=== PATIENT | female | born 1975 | race Caucasian/White ===

== ENCOUNTER → 2017-01-06 | Outpatient (CLI) | payer BC ==
--- NOTE | 2017-01-06 12:47 | MAMMOGRAPHY REPORT ---
ULTRASOUND OF BOTH BREASTS: 01/06/2017 CLINICAL HISTORY: The patient reports bilateral diffuse breast pain, left greater than right for appr oximately 6 months. COMPARISON: No prior exams were available for comparison. TECHNIQUE: Real-time ultrasound of both breasts was performed. FINDINGS: Bilateral mammography is recommended as the patient is over 40 years old, however, the pat ient refuses mammography and only would prefer ultrasound. Therefore, ultrasound was performed of bernardino th breasts including all 4 quadrants and subareolar regions. Multiple anechoic masses were seen during the exam consistent with cysts, including a round anechoic benign cyst measuring 3 x 3 mm in the left breast at 9:00, 2 cm from the nipple. A slightly hypoecho ic solid appearing circumscribed mass measuring 4 x 3 x 4 mm is seen within the left 11:00 breast, 2 cm from the nipple, which may represent a fibroadenoma. A nearly anechoic lobulated 3 x 2 x 3 mm mas s is seen within the left breast at 12:00, 4 cm from the nipple, which likely represents a complicate d cyst. An anechoic benign cyst is seen within the left subareolar breast measuring 4 mm. Other ane choic benign cysts are seen within the left 12 and 1:00 breast. An oval parallel hypoechoic solid-ap pearing mass measuring 6 x 2 x 3 mm is seen within the left breast at 1:00, 7 cm from the nipple, whi ch may represent a fibroadenoma. Other benign cysts were seen within the left 2:00 breast and lower outer quadrant. In the right breast at 12:00, 3 cm from the nipple, there is an oval circumscribed hypoechoic solid a ppearing mass which measures 1.2 x 1.0 x 0.5 cm. This may represent a fibroadenoma although ultrasou nd-guided biopsy is recommended for further evaluation. Adjacent to this is a 4 x 3 mm cyst. An ova l isoechoic circumscribed 7 x 5 x 2 mm mass is seen within the right 9:00 breast, 8 cm from the nippl e, which may represent a fibroadenoma. A similar appearing oval isoechoic circumscribed 8 x 7 mm mas s is seen within the right breast at 9:30, 8 cm from the nipple. Another isoechoic 3 x 3 x 4 mm mass is seen within the right breast at 10:00, 6 cm from the nipple. An adjacent anechoic 3 mm cyst is a lso noted. Other small cysts were seen during the exam. Bilateral implants are present. Recommend ultrasound-guided biopsy of the dominant solid-appearing mass in the right 12:00 breast. P ending benign pathology results, recommend follow-up ultrasound of the other solid-appearing masses s een bilaterally, including the left breast at 11, 12, and 1:00, and in the right breast at 9:00, 9:30 , and 10:00. IMPRESSION: ACR BI-RADS CATEGORY 4A: LOW SUSPICION FOR MALIGNANCY - FOLLOW-UP RECOMMENDED 1. Multiple isoechoic and hypoechoic solid appearing masses seen bilaterally, which may represent fib roadenomas. Recommend ultrasound guided biopsy of the dominant 1.2 cm mass in the right 12:00 breast . Pending benign pathology results, recommend follow-up ultrasound of the other bilateral masses in 6 months. Also recommend clinical follow-up for bilateral breast pain. 2. I recommend bilateral mammograms in addition to ultrasound given that the patient is over 40 year s old, although the patient refused mammography. I discussed with the patient that some suspicious f indings including architectural distortion and calcifications can only be seen mammographically and n ot on ultrasound. A phone call was made to the physician's office to confirm faxed results were received. The patient was verbally notified of the results. She tentatively scheduled the biopsy before leaving the depart ment. Daysi Becerra M.D. ah/:01/06/2017 11:59:34 Clinical Science Consultant: Shahana Martinez, [facility] letter sent: Abnormal 4/5 BI-RADS Code: ACR BI-RADS Category 4A: Low Suspicion For Malignancy
== END | disposition home or self-care (01) ==
LOC: C.MAMM 09:10
PROVIDERS: ATTEND Plastic Surgery
DX: N64.4 Mastodynia (principal); N63 Unspecified lump in breast

== ENCOUNTER → 2017-01-14 | Outpatient (CLI) | payer BC ==
--- NOTE | 2017-01-14 09:45 | Discharge Instructions ---
Discharge Instructions Procedure Procedure Date: Jan 14, 2017. Reason for visit: Right Mass/Pt On Mobic For Ra Unable To Stop. Discharge Discharge Date: Jan 14, 2017. Discharge Diagnosis: status post breast biopsy Instructions Activity Recommendations: Additional Limitations (see below) Return to School/Work: no limitations Recommended Home Diet: No Limitations Provider Instructions: ACTIVITY RECOMMENDATIONS: * No lifting, pushing, pulling or exercising the affected side for three days. RETURN TO SCHOOL/WORK: * You may return to work/school after the procedure, but do not perform any strenuous activities for 24 to 48 hours. MEDICATIONS: * Tylenol (two 325 mg) every four to six hours if needed for mild pain (if not allergic to Tylenol). DIET: * Resume previous diet. SPECIAL CARE INSTRUCTIONS: * Keep biopsy site dry for 24 hours. May shower after 24 hours, but do not soak (bathe) incision. * May remove Tegaderm (plastic patch) tomorrow AFTER showering. * Leave the steri-strips on for one week. Allow the steri-strips to fall off by themselves. If not off after one week, you may remove them. You may place a Bandaid crosswise over the strips, if desired. * Apply ice 10 minutes on and 10 minutes off as needed. * Wear a bra at bedtime to sleep more comfortably for 2-3 days. * Your referring physician should have the results after approximately 5 to 7 business days. * Call for unusual bleeding, fever, drainage, etc or if you have any questions call during normal business hours or after hours call Dr Becerra, . FOLLOW UP VISIT: Follow-up with Referring Physician as scheduled. Memo Moon Recommendations: Call your doctor if: * Temperature above 101 degrees * Pain not relieved by pain medicine ordered * There is increased drainage or redness from any incision * You have any unanswered questions or concerns. Your Doctors Instructions noted above were prepared by provider Daysi Becerra. Patient Signature Section: Patient Instructions Signature Page Nita Foster Patient (or Guardian) Signature/Date: I have read and understand the instructions given to me by my caregivers. Caregiver/RN/Doctor Signature/Date: The above-named patient and/or guardian has received patient instructions on this date. + Original Patient Signature Page (only) stays with chart. Please make copy for patient.
--- NOTE | 2017-01-14 13:58 | MAMMOGRAPHY REPORT ---
THIS REPORT HAS BEEN AMENDED. ULTRASOUND GUIDED BIOPSY RIGHT BREAST: 01/14/2017 CLINICAL HISTORY: Right 12:00 breast mass. PATIENT CONSENT: The procedure, risks and benefits were discussed with the patient and informed writt en consent was obtained. A timeout was performed immediately prior to the procedure. PROCEDURE DESCRIPTION: With ultrasound guidance, aseptic technique, and lidocaine as the local anesth etic (1% lidocaine to anesthetize the skin and 1% lidocaine with epinephrine to anesthetize the deepe r tissues), the dominant mass of concern in the right 12:00 breast was sampled 5 times with a 14-gaug e Achieve biopsy needle. Immediately thereafter, with ultrasound guidance, aseptic technique, and lid ocaine as the local anesthetic, a metallic localizer clip was placed centrally in the mass. Direct p ressure was applied to the site immediately post procedure and hemostasis was achieved. The patient tolerated the procedure without complication. She was given wound care instructions. The specimens w ere sent to pathology for analysis. COMPARISON: Comparison is made to exam dated: 01/06/2017 ultrasound - [facility]. IMPRESSION: ULTRASOUND GUIDED BIOPSY Ultrasound guided core needle biopsy of the dominant right 12:00 breast mass, with clip placement. T he patient will receive pathology results from her referring provider. Pending benign pathology resul ts, recommend follow-up ultrasound of the other bilateral masses in 6 months. Daysi Becerra M.D. ah/:01/14/2017 10:04:13 Attending Technologist: Daja LOVING(Minda)(Alva), [facility] [employer] Final Inspector: Daysi Becerra MD, [facility] AMENDMENT: 01/26/2017 Daysi Becerra M.D. The pathology from ultrasound-guided right breast biopsy was reviewed on 01/26/2017. The pathology sh ows a benign fibroadenoma, which is concordant with the imaging findings. Recommend follow-up ultras ound of the other bilateral masses in 6 months.
== END | disposition home or self-care (01) ==
LOC: C.MAMM 09:17
PROVIDERS: ATTEND Plastic Surgery
DX: D24.1 Benign neoplasm of right breast (principal)

== ENCOUNTER → 2017-03-14 | Outpatient (CLI) | payer BC ==
[2017-03-14 16:43] LABS: BASO % 0.5 %; BASO ABS # 0.05 K/uL (0-0.2); COMPLETE YES; EOS % 2.7 %; IG% 0.2 %; LYMPH % 28.2 %; LYMPH ABS # 2.69 K/uL (1.2-3.4); MEAN CELL VOLUME 89.1 fL (80-100); MEAN CORPUSCULAR HEMOGLOBIN 30.9 pg (25-34); MEAN CORPUSCULAR HGB CONC 34.6 g/dl (32-36); MEAN PLATELET VOLUME 13.7 fL (7.4-10.4); MONO % 7.7 %; NEUT % 60.7 %; PLATELET COUNT 178 K/uL (130-400); WHITE BLOOD COUNT 9.55 K/uL (4.8-10.8)
[2017-03-14 16:56] LABS: PROTHROMBIN TIME (PATIENT) 10.6 SECONDS (9.0-12.0)
[2017-03-14 17:12] LABS: BLOOD UREA NITROGEN 13 mg/dl (7-18); BUN/CREATININE RATIO 14.2 (10-20); CALCIUM 9.2 mg/dl (8.5-10.1); CARBON DIOXIDE 27 mmol/L (21-32); CHLORIDE 105 mmol/L (98-107); CREATININE 0.89 mg/dl (0.60-1.20); GLUCOSE 87 mg/dl (70-99); POTASSIUM 3.6 mmol/L (3.5-5.1); SODIUM 139 mmol/L (136-145)
== END | disposition home or self-care (01) ==
LOC: C.LAB 15:19
PROVIDERS: ATTEND Plastic Surgery
DX: N64.4 Mastodynia (principal)

== ENCOUNTER → 2017-08-19 | Day surgery (SDC) | payer SELFPAY ==
[2017-08-09 08:29] VITALS: Ht 162.6 cm; Wt 59.1 kg
[2017-08-09 16:39] LABS: BASO % 0.6 %; BASO ABS # 0.04 K/uL (0-0.2); EOS % 2.1 %; EOS ABS # 0.15 K/uL (0-0.5); HEMATOCRIT 40.2 % (37-47); HEMOGLOBIN 13.8 g/dL (12.0-16.0); IG# 0.01 K/uL (0.00-0.02); LYMPH % 32.5 %; LYMPH ABS # 2.33 K/uL (1.2-3.4); MEAN CELL VOLUME 88.4 fL (80-100); MEAN CORPUSCULAR HEMOGLOBIN 30.3 pg (25-34); MEAN CORPUSCULAR HGB CONC 34.3 g/dl (32-36); MEAN PLATELET VOLUME 13.3 fL (7.4-10.4); MONO % 8.5 %; MONO ABS # 0.61 K/uL (0.11-0.59); NEUT % 56.2 %; NEUT ABS # 4.03 K/uL (1.4-6.5); PLATELET COUNT 190 K/uL (130-400); RED CELL DISTRIBUTION WIDTH CV 13.3 % (11.5-14.5); RED CELL DISTRIBUTION WIDTH SD 42.8 fL (36.4-46.3); WHITE BLOOD COUNT 7.17 K/uL (4.8-10.8)
[2017-08-09 16:47] LABS: PTT PATIENT 26.8 SECONDS (21.0-31.0)
[2017-08-09 17:17] LABS: CREATININE 0.99 mg/dl (0.60-1.20)
[2017-08-09 17:18] LABS: CALCIUM 9.6 mg/dl (8.5-10.1); POTASSIUM 3.7 mmol/L (3.5-5.1)
[~2017-08-19] VITALS: Ht 162.6 cm; Wt 59.1 kg
[~2017-08-19] MED LIST: ACETAMINOPHEN 325 MG TAB PO PRN; ATROPINE SULFATE 0.1 MG/ML 5ML SYR IV PRN; BACITRACIN/POLYMYXIN B OINT 90 APPLN/28.4 GM TUBE EXT ONE; CEFAZOLIN 2000MG IV PUSH 15 ML IV SCH; CHECK SCOPOLAMINE PATCH PLACEMENT SCH; DEXAMETHASONE SOD INJ 4 MG/ML VIAL ONE; EpHEDrine SULFATE INJ 50 MG/ML AMP IV PRN; EpINEphrine INJ 1MG/ML AMP 1 MG/ML AMP ONE; FENTANYL CITRATE INJ 50 MCG/1 ML 2 ML VIAL IV PRN; FENTANYL CITRATE INJ 50 MCG/1 ML 2 ML VIAL ONE; GLYCOPYRROLATE INJ 0.2 MG/ML VIAL ONE; HYDROmorphone INJ 1 MG/ML SYR IV PRN; LACTATED RINGER'S 1000ML 1,000 ML IV SCH; LIDOCAINE HCL 0.5% 50 ML SDV ONE; LIDOCAINE HCL 1% 20 ML VIAL ONE; LIDOCAINE HCL 2% 2 ML VIAL (20MG/ML) ONE; LIDOCAINE MPF 1% INJ 30 ML SDV (L&D) INFIL ONE; LIDOCAINE/EPINEPHRINE 1% 20 ML VIAL ONE; METOCLOPRAMIDE HCL INJ 5 MG/ML 2 ML VIAL IV PRN; MIDAZOLAM HCL 1 MG/ML 2ML VIAL ONE; MINERAL OIL LIGHT 10 ML BTL ONE; NEOSTIGMINE METHYLSULFATE 5 MG/5 ML SYR ONE; ONDANSETRON INJ 2 MG/ML 2 ML VIAL IV PRN; ONDANSETRON INJ 2 MG/ML 2 ML VIAL ONE; OXYCODONE/ACETAMINOPHEN 5-325 TAB PO PRN; PROMETHAZINE HCL INJ 12.5 MG in SODIUM CHLORIDE 0.9% 50ML 50 ML IV PRN; PROPOFOL IV EMULSION 10 MG/ML 20 ML VIAL IV ONE; ROCURONIUM BROMIDE 10 MG/ML 5 ML VIAL IV ONE; SCOPOLAMINE 1.5 MG TDSY TD ONE; SCOPOLAMINE 1.5 MG TDSY TD SCH; SODIUM CHLORIDE 0.9% 1000ML 1,000 ML IV SCH
--- NOTE | 2017-08-19 08:34 | History & Physical Bridge - SC ---
H&P Re-Evaluation Bridge Note: I have examined the patient, reviewed the History & Physical and in the interval since the performance of the History & Physical I have noted the following changes of clinical significance: No changes noted
--- NOTE | 2017-08-19 11:35 | [facility] Post Operative Brief Note ---
Immediate Operative Summary Operative Date Aug 19, 2017. Pre-Operative Diagnosis S/P Breast Implant removal, Encounter for Cosmetic Surgery Post-Operative Diagnosis same Procedure(s) Performed Bilateral Nipple Revision, Liposuction Of Abdomen And Flanks With Autologus Fat Transfer To Breasts Surgeon Dr. Amanda Salinas Community Director Surgeon(s) Liv Dean PA-C, Dami Sagastume, VERONICAII Estimated Blood Loss 10 mL Findings Consistent with Post-Op Diagnosis Specimens None Drains None Anesthesia Type General Disposition Disposition: Recovery Room / PACU
--- NOTE | 2017-08-19 11:47 | Discharge Instructions ---
Discharge Instructions Date of Service Aug 19, 2017. Admission Reason for Admission: S/P Breast Implant, Encounter For Cosmetic Surgery Discharge Discharge Diagnosis / Problem: encounter for cosmetic surgery Discharge Goals Goal(s): Decrease discomfort, Improve function Activity Recommendations Activity Limitations: per Instructions/Follow-up section ACTIVITY RECOMMENDATIONS: __Normal activities _x_No bending, lifting or straining __No driving __Driving allowed when you are off pain medications _x_Walking permitted __You should have help at home for ___ days DRESSINGS: __No dressings required __Keep dressings dry/in place until first office visit _x_Remove dressings _in 3 days and OK to and leave dressings off __Apply ice ___ days __Remove dressings and reapply garment _x_Apply antibiotic ointment (Bacitracin, polysporin, etc) to wounds 3-4 times/ day for 10 days- EXCEPT NIPPLE INCISIONS (apply ointment to all incisions on abdomen adn the areas on breast with black suture) BATHING: __Keep dressings dry _x_Sponge bathing permitted _x_Showering permitted ON TUESDAY _X_No swimming, hot tubs or soaking in a tub MEDICATIONS: Resume previous medications unless instructed otherwise by your surgeon. _X_Do not use aspirin, Motrin, Advil or Ibuprofen as these may promote bleeding. Please use Tylenol. _X_Prescription(s) provided: pain medication provided at your last office visit OTHER INSTRUCTIONS: __Record drain output 2-3 times per day SPECIAL CARE INSTRUCTIONS: * It is normal to have a mild fever after surgery. If your temperature is higher than 101.5 degrees F, please call the office at [phone]. * Constipation is a typical side effect of pain medication. An over-the- counter stool softener will help relieve this. * Leaking around surgical drains may occur and should not cause concern. Sometimes these drains become clogged. If this happens, remove the bulb and milk the clot out of the tube, then replace the bulb. * Drainage from wounds after liposuction is normal and should be expected. Garments will become soiled. You should protect furniture and bedding. This drainage should mostly subside within 2-3 days. Leave garments in place unless instructed to remove them. * If you have unusual drainage from a wound or are concerned you have an infection or have any questions or concerns, please call the office at [phone]. FOLLOW UP VISIT: If not already scheduled, please call the office, , when you return home after surgery to schedule an appointment to be seen. . Current Hospital Diet Patient's current hospital diet: Discharge Diet Recommended Diet: Regular Diet Procedures Procedures Performed: Bilateral Nipple Revision, Liposuction Of Abdomen And Flanks With Autologus Fat Transfer To Breasts Pending Studies Studies pending at discharge: no Medical Emergencies . Who to Call and When: Medical Emergencies: If at any time you feel your situation is an emergency, please call 911 immediately. . Non-Emergent Contact Non-Emergency issues call your: Primary Care Provider, Surgeon . "Provider Documentation" section prepared by Liv Dean. . [place] Drug Monitoring Program Search Results: no issues identified
[2017-08-19 12:58] VITALS: TEMP 36.6
[2017-08-19 13:29] VITALS: BP 115/68; PULSE 62; O2SAT 100
--- NOTE | 2017-08-19 13:43 | Anesthesia Progress Nt - [facility] ---
Anesthesia Post Op Note Date & Time Aug 19, 2017 at 13:43 Vital Signs Pain Intensity: 1.0 Vital Signs Past 12 Hours Date Time Temp Pulse Resp B/P (MAP) Pulse Ox O2 Delivery O2 Flow Rate FiO2 08/19/17 13:29 62 18 115/68 (84) 100 Room Air 08/19/17 12:58 36.6 56 18 124/62 (82) 100 Room Air 08/19/17 12:51 114/59 08/19/17 12:50 63 23 98 08/19/17 12:50 61 23 08/19/17 12:49 37.0 67 16 114/59 98 Room Air 08/19/17 12:46 111/66 08/19/17 12:45 76 19 98 08/19/17 12:45 75 19 08/19/17 12:41 113/56 08/19/17 12:40 77 21 08/19/17 12:40 76 21 97 08/19/17 12:36 104/59 08/19/17 12:35 65 17 08/19/17 12:35 67 17 100 08/19/17 12:31 118/63 08/19/17 12:30 63 17 08/19/17 12:30 64 17 100 08/19/17 12:26 95/50 08/19/17 12:25 76 08/19/17 12:25 76 100 18 12:21 119/56 08/19/17 12:20 82 100 08/19/17 12:20 82 08/19/17 12:17 105/38 08/19/17 12:15 66 100 08/19/17 12:15 66 08/19/17 12:11 99/58 18 12:10 56 14 08/19/17 12:10 57 14 100 08/19/17 12:06 122/64 08/19/17 12:05 72 19 98 08/19/17 12:05 70 19 08/19/17 12:01 121/68 08/19/17 12:00 74 12 77 08/19/17 12:00 91 12 08/19/17 11:56 120/71 08/19/17 11:55 80 14 100 08/19/17 11:55 83 14 08/19/17 11:54 171/68 08/19/17 11:50 109 15 100 08/19/17 11:50 37.0 78 16 171/68 100 Mask 6 08/19/17 11:50 109 15 08/19/17 07:44 36.9 53 16 125/89 (101) 100 Room Air Notes Mental Status: alert / awake / arousable, participated in evaluation Pt Amnestic to Procedure: Yes Nausea / Vomiting: adequately controlled Pain: adequately controlled Airway Patency, RR, SpO2: stable & adequate BP & HR: stable & adequate Hydration State: stable & adequate Anesthetic Complications: no major complications apparent
--- NOTE | 2017-08-19 18:12 | OPERATIVE REPORT ---
DATE OF OPERATION: 08/19/2017 PREOPERATIVE DIAGNOSIS: Status post cosmetic breast implant removal, contour deformity bilateral breasts with poor scarring. POSTOPERATIVE DIAGNOSIS: Same. PROCEDURE: Bilateral revision of the nipple-areolar complexes. Liposuction of abdomen and flanks with autologous fat transfer of the breasts. SURGEON: Alejandra Salinas MD [employer]IVATE TUTORS [employer] TEACHERS: Liv Dean PA-C ANESTHESIA: General. COMPLICATIONS: None. INDICATION FOR PROCEDURE: The patient is a 42-year-old female who had had multiple prior attempts of breast augmentation performed by another surgeon with resulting capsular contracture and chronic pain, who desired explantation. This was performed in March of 2017. Overall, she did quite well from this explantation and capsulectomy, however, she developed a significant contour irregularity of the central breast, particularly behind the nipple. Her previous surgeon had used a periareolar incision to place her implants and this resulted in a significant scar contracture. We discussed performing scar subcision and filling with autologous fat as well as trying to fill some fat centrally in order to provide slightly more projection of the breast. We did discuss preoperatively that she has minimal fat to harvest and this would likely be a one-time attempt. We also discussed whether to proceed with excision of the periareolar scar which was actually located within the areola at this stage or at another stage and ultimately elected to proceed. BRIEF DESCRIPTION OF THE PROCEDURE: The risks, benefits, alternatives of the procedure were explained to patient who agreed and signed consent. She was identified and marked in the preoperative holding area. She was brought to the operating room where she was positioned supine and placed under anesthesia without incident. Surgical site was prepped and draped sterilely. A time-out procedure was performed. The patient had a history of multiple prior abdominal surgeries and therefore we had to carefully identify location for the placement of our incisions. All of these were oriented along prior scars. Each incision site was injected with 1% lidocaine with epinephrine. A 15 blade scalpel was used to make small stab incision at each of these sites. Tumescent fluid consisting of lactated Ringer's, 1% lidocaine and 1:100,000 epinephrine were used to tumesce the central abdomen and flanks at the area of most adiposity. A total of approximately 350 mL of tumescent solution was placed into the abdomen and flanks. Netatmo system was then placed between the liposuction cannula and suction machine in order to obtain and filter the aspirate. A total of 175 mL was able to be suctioned. Fat was processed in accordance with the protocol for the Revolve device. A total of 95 mL of good quality injectable fat was obtained. I then tried to perform some scar subcision using an 18-gauge needle along the infra-areolar scars bilaterally. This proved to be partially effective for release of the contracture, however, there were some stubborn areas. I made several small 2-3 mm stab incisions in the bilateral breasts and fat was injected in small approximately 0.2 mL aliquots into the areas of depression with good improvement in the contour. However, there did remain some tethered scar and I made an inferior areolar incision as a crescent which was deepithelialized. The nipple-areolar complex was partially undermined and advanced. Additional fat was injected via this incision after some of the deeper scar bands were divided using a #11 blade scalpel. A total of 63 mL of fat were injected into the left breast, which had the more significant contour issue. A similar procedure was undertaken on the right side, although a total of approximately 28 mL of fat were injected in similar fashion. I also performed the excision along the inferior areola and deepithelialized this in order to partially advanced nipple-areolar complex. Again, the nipple was partially undermined to facilitate release of some of the tethered scar. Wounds were reapproximated using 4-0 Vicryl interrupted sutures and 4-0 Vicryl running subcuticular suture. Liposuction incisions were closed using 5-0 nylon interrupted sutures. The small stab incisions of the breast were also closed using 5-0 nylon suture. Following this, dry dressings were placed and an abdominal binder was placed. A light gauze dressing and paper tape were applied to the breasts. The procedure was tolerated well. The patient was awakened and transferred to recovery room in satisfactory condition. I attest to the content of the Intraoperative Record and any orders documented therein. Any exception s are noted below.
== END | disposition home or self-care (01) ==
LOC: X.SURG 07:37
PROVIDERS: ATTEND Plastic Surgery
DX: N65.0 Deformity of reconstructed breast (principal); L90.5 Scar conditions and fibrosis of skin; M19.90 Unspecified osteoarthritis, unspecified site; F41.8 Other specified anxiety disorders; Z87.891 Personal history of nicotine dependence; Z98.82 Breast implant status

== ENCOUNTER 2024-07-13 16:44 | Inpatient (IN) ==
[2024-07-13 17:39] LABS: Basophils # (auto) 0.05 K/uL (0.00-0.20); Basophils % (auto) 0.5 %; Eosinophils # (auto) 0.19 K/uL (0.00-0.50); Eosinophils % (auto) 1.9 %; Hematocrit (blood only) 46.3 % (37.0-47.0); Hemoglobin 15.9 g/dl (12.0-16.0); Immature Granulocytes # (auto) 0.06 K/uL (0.01-0.20); Immature Granulocytes % (auto) 0.6 %; Lymphocytes # (auto) 2.34 K/uL (1.20-3.40); Lymphocytes % (auto) 23.2 %; Mean Corpuscular Hemoglobin 29.8 pg (25.0-34.0); Mean Corpuscular Hgb Conc 34.3 g/dL (32.0-36.0); Mean Corpuscular Volume 86.7 fL (80.0-100.0); Monocytes # (auto) 0.81 K/uL (0.11-0.59); Neutrophils # (auto) 6.65 K/uL (1.40-6.50); Neutrophils % (auto) 65.8 %; Platelet Count 249 K/uL (130-400); RDW Coefficient of Variation 12.2 % (11.5-14.5); RDW Standard Deviation 38.8 fL (36.4-46.3); Red Blood Count 5.34 M/uL (4.20-5.40)
[2024-07-13 17:53] LABS: Pregnancy Test, Serum Negative (Negative)
[2024-07-13 17:57] LABS: Albumin Globulin Ratio 1.5 (0.9-2); Albumin Level 4.8 gm/dl (3.4-5.0); BUN Creatinine Ratio 16.4 (10-20); Bilirubin,Total 0.4 mg/dl (0.2-1.0); Creatinine Clr Calc Pharmacy 74.1 ml/min; Globulin 3.2 gm/dl (2.5-4.0); Potassium 4.2 mmol/L (3.5-5.1)
[2024-07-13] MEDS: ONDANSETRON INJ 2 MG/ML 2 ML VIAL IV STA (17:58)
[2024-07-13] MEDS: MoRPHine SULFATE 4 MG/ML 1 ML CARP\\VIAL IV STA (17:58)
[2024-07-13] MEDS: SODIUM CHLORIDE 0.9% 1,000 ML IV ONE (17:59)
[2024-07-13] MEDS: HYDROmorphone INJ 0.5 MG/0.5 ML SYR IV STA ×2 (18:29→19:37)
[2024-07-13] MEDS: OPTIRAY 320 100ml IV ONE (18:36)
--- NOTE | 2024-07-13 19:31 | CT Scan Report ---
EXAMINATION: Abdomen and pelvis CT with CLINICAL HISTORY: Pain PRIORS: None TECHNIQUE: Contiguous axial images were obtained through the abdomen and pelvis with the use of intravenous contrast. Sagittal and coronal reformations are supplied. FINDINGS: Bilateral breast implants noted. Lung bases unremarkable. The liver enhances homogeneously with mild central intrahepatic ductal dilatation in the setting of cholecystitis. The portal vein, pancreas, spleen, stomach, adrenals, aorta and IVC are morphologically unremarkable. Mild atherosclerotic disease of the abdominal aorta. Kidneys enhance symmetrically. No obstructing calculus. Multiple dilated fluid-filled loops of small bowel present in the upper mid abdomen and left lower quadrant. These measure up to 3.1 cm with no wall thickening or pneumatosis. The terminal ileum and distal ileum is under distended. A discrete transition point may be present in the right lower to mid abdomen. A large amount of formed stool is present within the colon. Appendix is absent. No pericolonic inflammatory change. No ascites. The uterus is present. A right adnexal cyst is noted measuring 2.5 cm. Urinary bladder distends normally. IMPRESSION: 1. Multiple dilated loops of small bowel measuring up to 3.1 cm favoring a small bowel obstruction with no bowel wall thickening or pneumatosis. Decompressed loops of bowel are present in the right lower quadrant, suggesting that is the location of the transition point. No ascites or extraluminal gas. Surgical consultation suggested. ACT 112: Positive. There are findings on this examination that require communication between the performing entity and the patient following Patient Test Result Information Act ([place] ACT 112) guidelines. Electronically signed by Maritza Mtz 07-13-2024 7:30 PM
[2024-07-13] MEDS: ALUMINUM/MAGNESIUM SUSP 30 ML UDC PO STA (19:55)
--- NOTE | 2024-07-13 19:59 | Surgery Consultation ---
Date of Consultation July 13, 2024 Assessment & Plan (1) SBO (small bowel obstruction): Patient is a 49-year-old female who has had epigastric/upper abdominal pain since last evening without associated nausea or vomiting. Patient has not had a bowel movement for at least a few days and she is not passing gas. Workup in the emergency department with findings of SBO with transition in the RLQ on CT imaging. Patient was also given a GI cocktail due to complaints of severe indigestion, which did improve her symptoms. On exam there are no signs of acute abdomen that would warrant emergent surgical intervention. From a surgical standpoint, recommend treating the patient conservatively for now. Keep NPO, NGT to suction, and IV hydration. Possible SBFT tomorrow depending on how patient does overnight. Medical management per primary team, surgery will continue to follow. Supervising Physician Co-Signing Physician Notes pnt d/w SARMAD, labs and imaging reviewed, agree with above. Presented with abd pain, h/o sbo. AFVSS, abd soft, mildly ttp, no guarding. CT personally reviewed and interpreted, agree with sbo w/ transition point suspected in RLQ. Non operative management for now, may need contrasted study in next few days if no improvement. History of Present Illness Reason for Consultation: SBO History of Present Illness Patient is a 49-year-old female who presented to the emergency department with complaints of abdominal pain. Patient states her symptoms started last evening and have been persistent since. She denies any associated nausea or vomiting and was able to eat a small amount of food this morning and afternoon without any issues. She states she has not had a bowel movement for at least a few days and has not passed any gas. Her pain is mostly located in her epigastric region and describes it as a "cramping" pain that comes and goes. The patient has an abdominal surgical history of an appendectomy, cholecystectomy, bowel resection x2, , liposuction of the abdomen. She also tells me that she has had bowel obstructions in the past and did require surgical intervention once in 2017 however the others have resolved with conservative management. The patient came to the emergency department due to ongoing pain and on workup she was found to have findings of SBO with transition in the right lower quadrant and at that time the surgical team was consulted for further evaluation. At the time of my evaluation the patient is complaining of ongoing abdominal pain and severe indigestion. On exam her abdomen is mildly distended and is tender to palpation throughout however there are no signs of acute abdomen at this time. Patient with stable vitals and labs are wnl. She denies any CP, SOB, or new onset of fevers or chills. Allergies Allergy/AdvReac Type Severity Reaction Status Date / Time No Known Drug Allergies Allergy Unknown . Verified 08/19/17 07:43 Sulfa (Sulfonamide Allergy Blister Unverified 07/13/24 20:22 Antibiotics) Home Medications Medication Instructions Recorded Confirmed Type dicyclomine 20 mg tablet 20 mg PO TID 07/13/24 07/13/24 History estradiol 0.05 mg-norethindrone 1 patch transdermal DIRECTED 07/13/24 07/13/24 History 0.14 mg/24 hr semiwkly transderm patch (CombiPatch) hyoscyamine sulfate 0.125 mg 0.125 mg PO DAILY 07/13/24 07/13/24 History sublingual tablet linaclotide 72 mcg capsule 72 mcg PO DAILY 07/13/24 07/13/24 History (Linzess) Patient History Medical History SBO (small bowel obstruction) Surgical History S/P cholecystectomy S/P appendectomy H/O colectomy Social History Smoking Status: Current some day smoker Tobacco Type: E-cigarettes / Vaping Second Hand Exposure: No; Do You Dip or Chew Tobacco: No; Tobacco Cessation Education Requested by Patient: No Hx Alcohol Use: Yes Alcohol type: wine Hx Substance Use: No Preferred Language: Armenian Communication Ability: Effective Registered Nurse Float Pool Required: No Beliefs That Will Affect Care: None Current Living Situation: Family Other Information That Helps Us Care for You: No Feels Safe at Home: Yes Safety Concerns: Feels Safe At This Time Assistive Devices: Contacts and Hospital Bed Review of Systems Constitutional: as per Subjective / HPI Respiratory: no cough, no chest congestion and no dyspnea Cardiovascular: no chest pain, no dyspnea, no palpitations, no lightheadedness and no syncope Gastrointestinal: + abdominal pain, + bloating, + heartbur n and + cramping; no vomiting and no blood in stools Genitourinary: no dysuria, no urinary frequency and no hematuria Physical Exam Constitutional: WD/WN, vitals as above Respiratory: normal respiratory effort, lungs clear to auscultation Cardiovascular: RRR, no murmur, no edema Gastrointestinal (Abdomen): Abdomen soft, mildly distended, +diffuse TTP throughout without signs of peritonitis. +previous midline incision scar apprecia miriam just below umbilicus. Skin: no rashes, warm and dry Psychiatric: A+Ox3, euthymic affect Results & Data Vital Signs (Past 12 Hours) Vital Signs Temp Pulse Resp BP Pulse Ox O2 Del Method 07/13/24 17:50 69 07/13/24 16:47 36.5 C 90 20 152/92 H 97 Room Air Diagnostic Findings EXAMINATION: Abdomen and pelvis CT with CLINICAL HISTORY: Pain PRIORS: None TECHNIQUE: Contiguous axial images were obtained through the abdomen and pelvis with the use of intravenous contrast. Sagittal and coronal reformations are supplied. FINDINGS: Bilateral breast implants noted. Lung bases unremarkable. The liver enhances homogeneously with mild central intrahepatic ductal dilatation in the setting of cholecystitis. The portal vein, pancreas, spleen, stomach, adrenals, aorta and IVC are morphologically unremarkable. Mild atherosclerotic disease of the abdominal aorta. Kidneys enhance symmetrically. No obstructing calculus. Multiple dilated fluid-filled loops of small bowel present in the upper mid abdomen and left lower quadrant. These measure up to 3.1 cm with no wall thickening or pneumatosis. The terminal ileum and distal ileum is under distended. A discrete transition point may be present in the right lower to mid abdomen. A large amount of formed stool is present within the colon. Appendix is absent. No pericolonic inflammatory change. No ascites. The uterus is present. A right adnexal cyst is noted measuring 2.5 cm. Urinary bladder distends normally. IMPRESSION: 1. Multiple dilated loops of small bowel measuring up to 3.1 cm favoring a small bowel obstruction with no bowel wall thickening or pneumatosis. Decompressed loops of bowel are present in the right lower quadrant, suggesting that is the location of the transition point. No ascites or extraluminal gas. Surgical consultation suggested. PG Care Time/CCT Total # of Minutes Spent Total Time Spent with Patient: Total time spent is greater than 50% in coordination of care (as documented) at patient's floor/unit and/or counseling patient: [place] [address] Inpt Consult Level 1 Patient Type New Medical Decision Making Straight Forward Diagnoses SBO (small bowel obstruction) K56.609
[2024-07-13] MEDS: PANTOprazole 40 MG/10 ML IVP IV ONE (20:06)
[2024-07-13] MEDS: PANTOprazole 40 MG/10 ML SYR IV ONE (20:06)
[2024-07-13] MEDS ORDERED: ACETAMINOPHEN 1,000 MG/100 ML VIAL IV PRN (20:16)
[2024-07-13] MEDS: LIDOCAINE 2% JELLY 5 ML TUBE EXT ONE (20:21)
--- NOTE | 2024-07-13 21:30 | Emergency Department Note ---
History of Present Illness General Chief Complaint: GI Assessment Stated Complaint: POS BOWEL OBS, ABD PAIN Time Seen by Provider: 07/13/24 17:37 History of Present Illness Provider Complaint: abdominal pain Onset (ago): hour(s) (5.5) Pain Consistency: constant Location: diffuse Severity: moderate Maximum Pain Intensity: 8 Current Pain Intensity: 8 Quality: + stabbing and + sharp Relieved By: + nothing Exacerbated By: + nothing Context: + history of similar episodes (Feels like previous small bowel obstructions); no foreign travel, no possible food poisoning, no sick contacts, no recent antibiotic use, no recent surgery/procedure or no recent injury Associated Symptoms: + nausea; no vomiting, no fever, no chills, no dysuria, no hematemesis, no hematuria, no headache, no chest pain and no breathing difficulty Home Medications Medication Instructions Recorded Confirmed Type dicyclomine 20 mg tablet 20 mg PO TID 07/13/24 07/13/24 History estradiol 0.05 mg-norethindrone 1 patch transdermal DIRECTED 07/13/24 07/13/24 History 0.14 mg/24 hr semiwkly transderm patch (CombiPatch) hyoscyamine sulfate 0.125 mg 0.125 mg PO DAILY 07/13/24 07/13/24 History sublingual tablet linaclotide 72 mcg capsule 72 mcg PO DAILY 07/13/24 07/13/24 History (Linzess) Allergies Allergy/AdvReac Type Severity Reaction Status Date / Time No Known Drug Allergies Allergy Unknown . Verified 08/19/17 07:43 Sulfa (Sulfonamide Allergy Blister Unverified 07/13/24 20:22 Antibiotics) Past Med/Surg History Problem List (Updated 07/13/24 @ 21:30 by Art Deleon MD) SBO (small bowel obstruction) (Acute) Medical History SBO (small bowel obstruction) Surgical History S/P cholecystectomy S/P appendectomy H/O colectomy Social History Smoking Status: Current every day smoker Tobacco Type: E-cigarettes / Vaping Preferred Language: Slovenian Feels Safe at Home: Yes Physical Exam 2 Vital Signs: Vital Signs - 24 hr 07/13/24 16:47 07/13/24 17:50 07/13/24 17:57 Temperature 36.5 C Temperature Source Oral Pulse Rate 90 69 66 Pulse Rate from Sp O2 Sensor Pulse Rhythm Regular Pulse Strength Normal Respiratory Rate 20 12 Respiratory Effort / Characteristics Non-Labored Sponta neous Respiratory Depth Normal Respiratory Patter n Regular Blood Pressure 152/92 H 144/92 H Blood Pressure Arlene n 112 109 Blood Pressure Pos ition Sitting Pulse Oximetry 97 Oxygen Delivery Me thod Room Air Sepsis Recent Feve r Within 48 Hours No Sepsis New/Unexpla ined Change in Men christina Status No Sepsis Action Take n by Nursing No Action Required 07/13/24 18:30 07/13/24 19:00 07/13/24 19:30 Temperature Temperature Source Pulse Rate 61 75 72 Pulse Rate from Sp O2 Sensor 61 75 72 Pulse Rhythm Pulse Strength Respiratory Rate 19 18 19 Respiratory Effort / Characteristics Respiratory Depth Respiratory Patter n Blood Pressure 131/82 124/74 132/82 Blood Pressure Arlene n 97 90 98 Blood Pressure Pos ition Pulse Oximetry 99 96 97 Oxygen Delivery Me thod Sepsis Recent Feve r Within 48 Hours Sepsis New/Unexpla ined Change in Men christina Status Sepsis Action Take n by Nursing 07/13/24 20:00 07/13/24 20:30 Temperature Temperature Source Pulse Rate 74 74 Pulse Rate from Sp O2 Sensor Pulse Rhythm Pulse Strength Respiratory Rate 20 25 H Respiratory Effort / Characteristics Respiratory Depth Respiratory Patter n Blood Pressure 128/66 121/84 Blood Pressure Arlene n 86 90 Blood Pressure Pos ition Pulse Oximetry Oxygen Delivery Me thod Sepsis Recent Feve r Within 48 Hours Sepsis New/Unexpla ined Change in Men christina Status Sepsis Action Take n by Nursing Physical Exam: Physical Exam HENT: Exam performed. -Head: Normocephalic and atraumatic. EYES: Conjunctivae and EOM are normal.Right eye exhibits no discharge. Left eye exhibits no discharge. No scleral icterus. NECK: Normal range of motion. Neck supple. No JVD present. No tracheal deviation and normal range of motion present. CV: Normal rate, regular rhythm, normal heart sounds and intact distal pulses. There is no peripheral edema. Palpable radial pulses bue. PULM/CHEST: Effort normal and breath sounds normal. No respiratory distress. No stridor. no wheezes.no rales. -Chest Wall: no tenderness to palpation ABD: Abdomen is distended. Tympanic to percussion. Multiple scars over the anterior abdominal wall. Diffuse tenderness to palpation. MUSC/SKEL: Normal range of motion. There is no peripheral edema, tenderness or deformity. NEURO: Motor and sensation grossly intact. SKIN: Skin is warm and dry. not diaphoretic. PSYCH: normal mood and affect. Behavior is normal. Judgment and thought content normal. Course Course 1736: The patient was evaluated in room A9. A complete history and physical exam was performed Cardiac monitoring: An order was placed for continuous cardiac monitoring. The monitor shows a rate of 70 with sinus rhythm interpreted by me 1940: Vital signs stable. Labs are unremarkable. CT shows small bowel obstruction. Discussed case with general surgery Mary MALDONADO for Dr. Lake who states place NG tube and should be down to evaluate the patient. Patient be admitted to the medicine service. 1950: General surgery at bedside. Patient requesting something for heartburn. General surgery okay with GI cocktail. Administered Medications Discontinued Medications Al Hydrox/Mg Hydrox/Simethicone (Aluminum/Magnesium Susp 30 Ml Udc) 15 ml PO NOW STA Stop: 07/13/24 19:52 Last Admin: 07/13/24 19:55 Dose: 15 ml Documented By: RUDDYW Hydromorphone HCl (Hydromorphone Inj 0.5 Mg/0.5 Ml Syr) 0.5 mg IV NOW STA Stop: 07/13/24 18:22 Last Admin: 07/13/24 18:29 Dose: 0.5 mg Documented By: JORDAN Hydromorphone HCl (Hydromorphone Inj 0.5 Mg/0.5 Ml Syr) 0.5 mg IV NOW STA Stop: 07/13/24 19:33 Last Admin: 07/13/24 19:37 Dose: 0.5 mg Documented By: JORDAN Sodium Chloride (Nss) 1,000 mls @ 999 mls/hr IV .Q1H1M ONE Stop: 07/13/24 18:53 Last Infusion: 07/13/24 21:02 Dose: Infused Documented By: Admin: 07/13/24 17:59 Dose: 999 mls/hr Documented By: BS Pantoprazole Sodium (Protonix) 40 mg in 10 mls @ 5 mls/min IV NOW ONE Stop: 07/13/24 20:00 Last Admin: 07/13/24 20:06 Dose: Not Given Documented By: ALDEN Ioversol (Optiray 320 100ml) 90 ml IV ONCE ONE Stop: 07/13/24 18:36 Last Admin: 07/13/24 18:36 Dose: 90 ml Documented By: SHANNON Lidocaine HCl (Lidocaine 2% Jelly 5 Ml Tube) Confirm Administered Dose 5 ml EXT .STK-MED ONE Stop: 07/13/24 20:18 Last Admin: 07/13/24 20:21 Dose: 5 ml Documented By: JORDAN Morphine Sulfate (Morphine Sulfate 4 Mg/Ml 1 Ml Carp\Vial) 4 mg IV NOW STA Stop: 07/13/24 17:54 Last Admin: 07/13/24 17:58 Dose: 4 mg Documented By: EDVIN Ondansetron HCl (Ondansetron Inj 2 Mg/Ml 2 Ml Vial) 4 mg IV NOW STA Stop: 07/13/24 17:54 Last Admin: 07/13/24 17:58 Dose: 4 mg Documented By: EDVIN Pantoprazole Sodium (Pantoprazole 40 Mg/10 Ml Ivp) Confirm Administered Dose 40 mg IV .STK-MED ONE Stop: 07/13/24 20:03 Last Admin: 07/13/24 20:06 Dose: 40 mg Documented By: ALDEN Medical Decision Making Laboratory Data Attestation: I reviewed the patient's lab results. 07/13/24 17:19 07/13/24 17:19 Lab Results 07/13/24 Range/Units 17:19 WBC 10.10 (4.8-10.8) K/ul RBC 5.34 (4.20-5.40) M/uL Hgb 15.9 (12.0-16.0) g/dl Hct 46.3 (37.0-47.0) % MCV 86.7 (80.0-100.0) fL MCH 29.8 (25.0-34.0) pg MCHC 34.3 (32.0-36.0) g/dL RDW Std Deviation 38.8 (36.4-46.3) fL RDW Coeff of Marcos 12.2 (11.5-14.5) % Plt Count 249 (130-400) K/uL MPV 12.0 (9.4-12.4) fL Immature Gran % (Auto) 0.6 % Neut % (Auto) 65.8 % Lymph % (Auto) 23.2 % Russell % (Auto) 8.0 % Eos % (Auto) 1.9 % Baso % (Auto) 0.5 % Neut # (Auto) 6.65 H (1.40-6.50) K/uL Lymph # (Auto) 2.34 (1.20-3.40) K/uL Russell # (Auto) 0.81 H (0.11-0.59) K/uL Eos # (Auto) 0.19 (0.00-0.50) K/uL Baso # (Auto) 0.05 (0.00-0.20) K/uL Immature Gran # (Auto) 0.06 (0.01-0.20) K/uL Sodium 140 (136-145) mmol/L Potassium 4.2 (3.5-5.1) mmol/L Chloride 104 (98-107) mmol/L Carbon Dioxide 27 (21-32) mmol/L Anion Gap 9 (3-11) BUN 12 (6-23) mg/dl Creatinine 0.73 (0.6-1.2) mg/dl Est Cr Clr Drug Dosing 74.1 ml/min eGFR 100.13 BUN/Creatinine Ratio 16.4 (10-20) Glucose 102 H (70-99(Fasting)) mg/dl Calcium 10.0 (8.6-10.3) mg/dl Total Bilirubin 0.4 (0.2-1.0) mg/dl AST 15 (13-39) U/L ALT 13 (7-52) U/L Alkaline Phosphatase 63 (34-104) U/L Total Protein 8.0 (6.0-8.3) gm/dl Albumin 4.8 (3.4-5.0) gm/dl Globulin 3.2 (2.5-4.0) gm/dl Albumin/Globulin Ratio 1.5 (0.9-2) Lipase 21 (11-82) U/L HCG, Qual Negative (Negative) Imaging Data Radiologist's Impression: Abdomen/Pelvis CT 07/13/24 17:44 EXAMINATION: Abdomen and pelvis CT with CLINICAL HISTORY: Pain PRIORS: None TECHNIQUE: Contiguous axial images were obtained through the abdomen and pelvis with the use of intravenous contrast. Sagittal and coronal reformations are supplied. FINDINGS: Bilateral breast implants noted. Lung bases unremarkable. The liver enhances homogeneously with mild central intrahepatic ductal dilatation in the setting of cholecystitis. The portal vein, pancreas, spleen, stomach, adrenals, aorta and IVC are morphologically unremarkable. Mild atherosclerotic disease of the abdominal aorta. Kidneys enhance symmetrically. No obstructing calculus. Multiple dilated fluid-filled loops of small bowel present in the upper mid abdomen and left lower quadrant. These measure up to 3.1 cm with no wall thickening or pneumatosis. The terminal ileum and distal ileum is under distended. A discrete transition point may be present in the right lower to mid abdomen. A large amount of formed stool is present within the colon. Appendix is absent. No pericolonic inflammatory change. No ascites. The uterus is present. A right adnexal cyst is noted measuring 2.5 cm. Urinary bladder distends normally. IMPRESSION: 1. Multiple dilated loops of small bowel measuring up to 3.1 cm favoring a small bowel obstruction with no bowel wall thickening or pneumatosis. Decompressed loops of bowel are present in the right lower quadrant, suggesting that is the location of the transition point. No ascites or extraluminal gas. Surgical consultation suggested. ACT 112: Positive. There are findings on this examination that require communication between the performing entity and the patient following Patient Test Result Information Act ([place] ACT 112) guidelines. Electronically signed by Maritza Mtz 07-13-2024 7:30 PM [facility] Narrative 1737: The patient was evaluated in room A9. A complete history and physical exam was performed Cardiac monitoring: An order was placed for continuous cardiac monitoring. The monitor shows a rate of 70 with sinus rhythm interpreted by me 1940: Vital signs stable. Labs are unremarkable. CT shows small bowel obstruction. Discussed case with general surgery Mary MALDONADO for Dr. Lake who states place NG tube and should be down to evaluate the patient. Patient be admitted to the medicine service. 1950: General surgery at bedside. Patient requesting something for heartburn. General surgery okay with GI cocktail. Impression & Plan SBO (small bowel obstruction) Discharge Plan Visit Data Chief Complaint: GI Assessment Stated Complaint: POS BOWEL OBS, ABD PAIN ED Provider: Art Deleon Discharge Problem: SBO (small bowel obstruction) Patient Disposition: Admitted As Inpatient Forms Stand Alone Forms: My [facility] Prescriptions Prescriptions: No Action dicyclomine 20 mg tablet 20 mg PO TID hyoscyamine sulfate 0.125 mg tablet, sublingual 0.125 mg PO DAILY CombiPatch 0.05-0.14 mg/24 hr patch semiweekly 1 patch transdermal DIRECTED Linzess 72 mcg capsule 72 mcg PO DAILY Referrals Referrals: Rashida Diallo [Primary Care Provider] -
--- NOTE | 2024-07-13 21:36 | History & Physical Report ---
Date of Service July 13, 2024 Assessment & Plan (1) SBO (small bowel obstruction): Plan: Recurrent SBO History of multiple intra-abdominal surgeries hx IBS (constipation predominant), transient hematochezia symptoms from 4 days ago as per patient GERD, worsened symptoms as per patient intermittent vape use Admit to Med[facility] Bowel rest Continue NGT decompression General Surgery consult (ED provider already in touch with provider on-call.) IV PPI twice daily for now for uncontrolled GERD DVT prophylaxis. SCDs re: transient hematochezia Full code Text document was generated using [employer] voice recognition software. It may contain grammatical or spelling errors. Kindly contact undersigned for clarification of any documentation item in question. History of Present Illness Chief Complaint: Abdominal pain Primary Care Provider: Rashida Diallo History obtained from patient, family, and records. Medical history significant for recurrent SBO, history of bowel surgery, GERD, IBS (constipation predominant), intermittent vape use. Patient has a history of "necrotic bowel" and intra-abdominal abscesses status post surgery at [facility] in the . 5 bowel obstructions since for surgery. Last surgery 2016 as per patient. Last confinement for bowel obstruction at [facility] 2020. No surgical intervention at that time. 4 days ago, patient had transient hematochezia without abdominal pain complaints. 2 days ago, patient noted achy epigastric discomfort without other symptoms reminiscent of bowel blockage attacks. Worsening GERD symptoms. Last BM was 4 days ago. Denies chest pain, SOB. Patient consulted ER for worsening symptoms. NGT inserted at the ER for bowel obstruction. 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 Verified 08/19/17 07:43 Sulfa (Sulfonamide Allergy Blister Unverified 07/13/24 20:22 Antibiotics) Home Medications Medication Instructions Recorded Confirmed Type dicyclomine 20 mg tablet 20 mg PO TID 07/13/24 07/13/24 History estradiol 0.05 mg-norethindrone 1 patch transdermal DIRECTED 07/13/24 07/13/24 History 0.14 mg/24 hr semiwkly transderm patch (CombiPatch) hyoscyamine sulfate 0.125 mg 0.125 mg PO DAILY 07/13/24 07/13/24 History sublingual tablet linaclotide 72 mcg capsule 72 mcg PO DAILY 07/13/24 07/13/24 History (Linzess) Protonix 40 mg PO DAILY 07/14/24 07/14/24 History Past Med/Surg History Problem List (Updated 07/13/24 @ 21:30 by Art Deleon MD) SBO (small bowel obstruction) (Acute) Medical History SBO (small bowel obstruction) Surgical History S/P cholecystectomy S/P appendectomy H/O colectomy Social History Smoking Status: Current some day smoker Tobacco Type: E-cigarettes / Vaping Second Hand Exposure: No; Do You Dip or Chew Tobacco: No; Tobacco Cessation Education Requested by Patient: No Hx Alcohol Use: Yes Alcohol type: wine Hx Substance Use: No Preferred Language: Sami Communication Ability: Effective 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 Beliefs That Will Affect Care: None Current Living Situation: Family Other Information That Helps Us Care for You: No Feels Safe at Home: Yes Safety Concerns: Feels Safe At This Time Assistive Devices: Contacts and Hospital Bed Review of Systems Review of Systems: As per HPI, all other systems reviewed and negative Physical Exam Physical Exam: GENERAL: Slightly uncomfortable, looks younger than stated age, no respiratory distress SKIN: Normal color, warm HEENT: [place] palpebral conjunctivae, no ptosis, dry buccal mucosa, NGT in place NECK : Supple, no tenderness CHEST : CTA, no tenderness HEART : RRR, no obvious murmurs ABDOMEN: Some distention, central abdominal tenderness EXTREMITIES : No LE swelling/tenderness, palpable pulses, no other conspicuous deformities noted NEUROLOGIC : Coherent, no facial asymmetry, no other gross focality Results & Data Results & Data Vital Signs (Past 12 Hours) Vital Signs Temp Pulse Resp BP Pulse Ox O2 Del Method 07/13/24 20:30 74 25 H 121/84 07/13/24 20:00 74 20 128/66 07/13/24 19:30 72 19 132/82 97 07/13/24 19:00 75 18 124/74 96 07/13/24 18:30 61 19 131/82 99 07/13/24 17:57 66 12 144/92 H 07/13/24 17:50 69 07/13/24 16:47 36.5 C 90 20 152/92 H 97 Room Air Laboratory Results Laboratory Results WBC 10.10 K/ul (4.8-10.8) 07/13/24 17:19 RBC 5.34 M/uL (4.20-5.40) 07/13/24 17:19 Hgb 15.9 g/dl (12.0-16.0) 07/13/24 17:19 Hct 46.3 % (37.0-47.0) 07/13/24 17:19 MCV 86.7 fL (80.0-100.0) 07/13/24 17:19 MCH 29.8 pg (25.0-34.0) 07/13/24 17:19 MCHC 34.3 g/dL (32.0-36.0) 07/13/24 17:19 RDW Std Deviation 38.8 fL (36.4-46.3) 07/13/24 17:19 RDW Coeff of Marcos 12.2 % (11.5-14.5) 07/13/24 17:19 Plt Count 249 K/uL (130-400) 07/13/24 17:19 MPV 12.0 fL (9.4-12.4) 07/13/24 17:19 Immature Gran % (Auto) 0.6 % 07/13/24 17:19 Neut % (Auto) 65.8 % 07/13/24 17:19 Lymph % (Auto) 23.2 % 07/13/24 17:19 [place]y % (Auto) 8.0 % 07/13/24 17:19 Eos % (Auto) 1.9 % 07/13/24 17:19 Baso % (Auto) 0.5 % 07/13/24 17:19 Neut # (Auto) 6.65 K/uL (1.40-6.50) H 07/13/24 17:19 Lymph # (Auto) 2.34 K/uL (1.20-3.40) 07/13/24 17:19 [place]y # (Auto) 0.81 K/uL (0.11-0.59) H 07/13/24 17:19 Eos # (Auto) 0.19 K/uL (0.00-0.50) 07/13/24 17:19 Baso # (Auto) 0.05 K/uL (0.00-0.20) 07/13/24 17:19 Immature Gran # (Auto) 0.06 K/uL (0.01-0.20) 07/13/24 17:19 Sodium 140 mmol/L (136-145) 07/13/24 17:19 Potassium 4.2 mmol/L (3.5-5.1) 07/13/24 17:19 Chloride 104 mmol/L (98-107) 07/13/24 17:19 Carbon Dioxide 27 mmol/L (21-32) 07/13/24 17:19 Anion Gap 9 (3-11) 07/13/24 17:19 BUN 12 mg/dl (6-23) 07/13/24 17:19 Creatinine 0.73 mg/dl (0.6-1.2) 07/13/24 17:19 Est Cr Clr Drug Dosing 74.1 ml/min 07/13/24 17:19 eGFR 100.13 07/13/24 17:19 BUN/Creatinine Ratio 16.4 (10-20) 07/13/24 17:19 Glucose 102 mg/dl (70-99(Fasting)) H 07/13/24 17:19 Calcium 10.0 mg/dl (8.6-10.3) 07/13/24 17:19 Total Bilirubin 0.4 mg/dl (0.2-1.0) 07/13/24 17:19 AST 15 U/L (13-39) 07/13/24 17:19 ALT 13 U/L (7-52) 07/13/24 17:19 Alkaline Phosphatase 63 U/L (34-104) 07/13/24 17:19 Total Protein 8.0 gm/dl (6.0-8.3) 07/13/24 17:19 Albumin 4.8 gm/dl (3.4-5.0) 07/13/24 17:19 Globulin 3.2 gm/dl (2.5-4.0) 07/13/24 17:19 Albumin/Globulin Ratio 1.5 (0.9-2) 07/13/24 17:19 Lipase 21 U/L (11-82) 07/13/24 17:19 HCG, Qual Negative (Negative) 07/13/24 17:19 Impressions Abdomen/Pelvis CT 07/13/24 17:44 EXAMINATION: Abdomen and pelvis CT with CLINICAL HISTORY: Pain PRIORS: None TECHNIQUE: Contiguous axial images were obtained through the abdomen and pelvis with the use of intravenous contrast. Sagittal and coronal reformations are supplied. FINDINGS: Bilateral breast implants noted. Lung bases unremarkable. The liver enhances homogeneously with mild central intrahepatic ductal dilatation in the setting of cholecystitis. The portal vein, pancreas, spleen, stomach, adrenals, aorta and IVC are morphologically unremarkable. Mild atherosclerotic disease of the abdominal aorta. Kidneys enhance symmetrically. No obstructing calculus. Multiple dilated fluid-filled loops of small bowel present in the upper mid abdomen and left lower quadrant. These measure up to 3.1 cm with no wall thickening or pneumatosis. The terminal ileum and distal ileum is under distended. A discrete transition point may be present in the right lower to mid abdomen. A large amount of formed stool is present within the colon. Appendix is absent. No pericolonic inflammatory change. No ascites. The uterus is present. A right adnexal cyst is noted measuring 2.5 cm. Urinary bladder distends normally. IMPRESSION: 1. Multiple dilated loops of small bowel measuring up to 3.1 cm favoring a small bowel obstruction with no bowel wall thickening or pneumatosis. Decompressed loops of bowel are present in the right lower quadrant, suggesting that is the location of the transition point. No ascites or extraluminal gas. Surgical consultation suggested. ACT 112: Positive. There are findings on this examination that require communication between the performing entity and the patient following Patient Test Result Information Act ([place] ACT 112) guidelines. Electronically signed by Maritza Mtz 07-13-2024 7:30 PM
[2024-07-13] MEDS ORDERED: LORazepam 2 MG/1 ML VIAL IV PRN (22:11)
[2024-07-13] MEDS: KETOROLAC TROMETHAMINE 15 MG/ML VIAL IV STA (22:17)
[2024-07-13] MEDS: SODIUM CHLORIDE 0.9% 1,000 ML IV STA (22:44)
[2024-07-13] MEDS: MoRPHine SULFATE 2 MG/ML CARP IV PRN (22:44)
[2024-07-13] MEDS: CHLORASEPTIC (PHENOL) 1.4% SOLN 180 ML BTL MT PRN (23:23)
--- NOTE | 2024-07-14 00:05 | XRay Report ---
Exam(s): XR KUB EXAM: XR Abdomen, 1 View CLINICAL HISTORY: Reason for exam: NG tube placement. TECHNIQUE: Frontal supine view of the abdomen/pelvis. COMPARISON: No relevant prior studies available. FINDINGS: Lower thorax: Esophageal catheter with its tip in the gastric body. Gastrointestinal tract: Unremarkable. No dilation. Organs: Contrast is seen within the renal collecting systems bilaterally consistent with prior administration. Bones/joints: Unremarkable. No acute fracture. Other findings: Postoperative changes right upper quadrant. IMPRESSION: No acute findings. Electronically signed by: Portillo Rea MD 07/14/24 00:04 AM
[2024-07-14 00:35] LABS: Appearance Urine Clear (Clear); Bilirubin Urine Negative (Negative); Blood Urine Negative (Negative); Color Urine Yellow; Glucose Urine UA Negative (Negative); Ketones Urine 1+ (Negative); Leukocyte Esterase Urine Negative (Negative); Nitrite Urine Negative (Negative); Protein Urine Negative (Negative); Specific Gravity Urine > 1.045 (1.000-1.030); Urobilinogen Urine Negative (Negative)
[2024-07-14] MEDS: FAMOTIDINE 20MG IV PUSH 20 MG/5 ML SYR IV ONE (00:43)
[2024-07-14] MEDS: PROMETHAZINE 6.25 MG/50.25 ML BAG IV PRN (05:58)
[2024-07-14 06:32] LABS: Basophils # (auto) 0.03 K/uL (0.00-0.20); Basophils % (auto) 0.2 %; Eosinophils # (auto) 0.05 K/uL (0.00-0.50); Eosinophils % (auto) 0.4 %; Hematocrit (blood only) 39.2 % (37.0-47.0); Hemoglobin 13.6 g/dl (12.0-16.0); Immature Granulocytes # (auto) 0.04 K/uL (0.01-0.20); Immature Granulocytes % (auto) 0.3 %; Lymphocytes # (auto) 1.67 K/uL (1.20-3.40); Lymphocytes % (auto) 13.7 %; Mean Corpuscular Hemoglobin 30.6 pg (25.0-34.0); Mean Corpuscular Hgb Conc 34.7 g/dL (32.0-36.0); Mean Corpuscular Volume 88.1 fL (80.0-100.0); Mean Platelet Volume 12.4 fL (9.4-12.4); Monocytes # (auto) 1.05 K/uL (0.11-0.59); Monocytes % (auto) 8.6 %; Neutrophils # (auto) 9.34 K/uL (1.40-6.50); Neutrophils % (auto) 76.8 %; Platelet Count 224 K/uL (130-400); RDW Coefficient of Variation 12.3 % (11.5-14.5); RDW Standard Deviation 39.7 fL (36.4-46.3); Red Blood Count 4.45 M/uL (4.20-5.40); White Blood Count 12.18 K/ul (4.8-10.8)
[2024-07-14 06:46] LABS: BUN Creatinine Ratio 15.4 (10-20); Calcium 8.3 mg/dl (8.6-10.3); Creatinine Clr Calc Pharmacy 97.3 ml/min
[2024-07-14] MEDS: PANTOprazole 40 MG/10 ML SYR IV SCH (08:57)
--- NOTE | 2024-07-14 08:58 | Surgery Progress Note ---
Date of Service July 14, 2024 Assessment & Plan (1) SBO (small bowel obstruction): Plan: less abd pain than admission, abd distended, soft TTP denies flatus and BM, but feels gas moving around in stomach NGT to LIWS , may clamp for ambulation NPO IV fluids no acute surgical interventions will follow along Admission and Anticipated Discharge Date Admission Date: July 13, 2024 Supervising Physician Co-Signing Physician Notes pnt S&E, labs reviewed, agree w/ above. Admitted overnight with recurrent sbo. h/o mult abd surgeries. NG in place, feels better than prior to admission. Abd moderately distended, mildly ttp, no guarding. Continue non op management. May need oral contrasted study in a few days if no improvement. Subjective less abd pain then yesterday Review of Systems Constitutional: no fever and no chills Respiratory: no dyspnea Cardiovascular: no chest pain Gastrointestinal: + abdominal pain and + bloating; no naus ea and no vomiting Genitourinary: no dysuria Musculoskeletal: no muscle weakness Psychiatric: no confusion Physical Exam Constitutional: cooperative and comfortable; no acute distress Respiratory: normal respiratory effort; no respiratory distress Cardiovascular: Rate/Rhythm: regular rate Gastrointestinal (Abdomen): Inspection/Auscultation: + abdomen distended Percussion/Palpation: + abdomen tender and abdomen soft Musculoskeletal: no cyanosis or clubbing, extremities motor strength 5/5 Psychiatric: Orientation: alert and oriented x 3 Results & Data Vital Signs (Past 12 Hours) Vital Signs Temp Pulse Pulse Resp BP BP Pulse Ox 07/14/24 07:14 98.2 F 72 18 93/59 L 97 07/13/24 22:20 97.9 F 69 16 114/68 99 07/13/24 22:20 97.9 F 69 16 114/68 99 07/13/24 21:49 74 07/13/24 21:30 68 13 130/80 96 O2 Del Method 07/14/24 07:14 Room Air 07/13/24 22:20 Room Air 07/13/24 22:20 Room Air 07/13/24 21:49 07/13/24 21:30 PG Care Time/CCT Total # of Minutes Spent Total Time Spent with Patient: Total time spent is greater than 50% in coordination of care (as documented) at patient's floor/unit and/or counseling patient: Coding Level of Care Code 15111 SUB INP/OBS CARE 06/30MIN Diagnoses SBO (small bowel obstruction) K56.609
[2024-07-14] MEDS ORDERED: PANTOprazole 40 MG/10 ML SYR IV SCH (09:00)
[2024-07-14] MEDS ORDERED: SODIUM CHLORIDE 0.65% NA SOLN 45 ML (OCEAN) PRN (11:30)
[2024-07-14] MEDS: SODIUM CHLORIDE 0.9% 1,000 ML IV SCH (11:32)
[2024-07-14] MEDS: ONDANSETRON INJ 2 MG/ML 2 ML VIAL IV PRN (11:44)
--- NOTE | 2024-07-14 12:38 | Hospitalist Progress Note ---
Date of Service July 14, 2024 Assessment & Plan (1) SBO (small bowel obstruction): Plan: Recurrent small bowel obstruction H/O multiple intra-abdominal surgeries H/O IBS (constipation predominant), transient hematochezia symptoms from 4 days ago as per patient -- Multiple dilated loops of small bowel measuring up to 3.1 cm favoring a small bowel obstruction with no bowel wall thickening or pneumatosis. Decompressed loops of bowel are present in the right lower quadrant, suggesting that is the location of the transition point. No ascites or extraluminal gas. 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 DVT Px: SCDs re: transient hematochezia Code Status Full code Admission and Anticipated Discharge Date Admission Date: July 13, 2024 Subjective Patient is seen and examined at bedside Abdominal pain better when compared to yesterday Denies any nausea, vomiting, chest pain, dyspnea No flatus or bowel movement today Denies any recurrence of rectal bleed Heartburn improved Review of Systems Review of Systems: All systems reviewed & are unremarkable except as noted in Subjective Physical Exam Physical Exam: Physical Exam: Vitals signs as noted above General Appearance:Moderately built and nourished, no apparent distress Head: normocephalic, Atraumatic Eyes: normal inspection, EOMI Neck: supple, Trachea midline Respiratory/Chest: Normal breath sounds, CTA, No accessory muscle use Cardiovascular: S1, S2, No murmur Abdomen/GI:Soft, no audible bowel sounds, mild tenderness generalized, mild distention Extremities/Musculoskeletal:normal inspection, no edema Neurologic/Psych:AAOX3, grossly no focal neurological deficits Skin: normal color, warm Results & Data Results & Data Vital Signs (Past 12 Hours) Vital Signs Temp Pulse Resp BP Pulse Ox O2 Del Method 07/14/24 08:57 73 106/69 07/14/24 07:14 36.8 C 72 18 93/59 L 97 Room Air Laboratory Results Short CBC 07/13/24 07/14/24 Range/Units 17:19 05:35 WBC 10.10 12.18 H (4.8-10.8) K/ul Hgb 15.9 13.6 (12.0-16.0) g/dl Hct 46.3 39.2 (37.0-47.0) % Plt Count 249 224 (130-400) K/uL BMP 07/13/24 07/14/24 17:19 05:35 Sodium 140 139 Potassium 4.2 4.0 Chloride 104 109 H Carbon Dioxide 27 25 BUN 12 10 Creatinine 0.73 0.65 Glucose 102 H 97 Calcium 10.0 8.3 L Liver Function 07/13/24 Range/Units 17:19 Total Bilirubin 0.4 (0.2-1.0) mg/dl AST 15 (13-39) U/L ALT 13 (7-52) U/L Alkaline Phosphatase 63 (34-104) U/L Albumin 4.8 (3.4-5.0) gm/dl Urine 07/14/24 Range/Units 00:26 Urine Color Yellow Urine Appearance Clear (Clear) Urine pH 5.0 (4.5-7.5) Ur Specific Sultan > 1.045 H (1.000-1.030) Urine Protein Negative (Negative) Urine Glucose (UA) Negative (Negative)
[2024-07-15 06:26] LABS: Hematocrit (blood only) 37.2 % (37.0-47.0); Hemoglobin 12.6 g/dl (12.0-16.0); Mean Corpuscular Hemoglobin 30.3 pg (25.0-34.0); Mean Corpuscular Hgb Conc 33.9 g/dL (32.0-36.0); Mean Corpuscular Volume 89.4 fL (80.0-100.0); Mean Platelet Volume 12.3 fL (9.4-12.4); Platelet Count 197 K/uL (130-400); RDW Coefficient of Variation 12.5 % (11.5-14.5); RDW Standard Deviation 41.3 fL (36.4-46.3); Red Blood Count 4.16 M/uL (4.20-5.40); White Blood Count 9.38 K/ul (4.8-10.8)
[2024-07-15 06:36] LABS: BUN Creatinine Ratio 12.3 (10-20); Calcium 7.9 mg/dl (8.6-10.3); Creatinine Clr Calc Pharmacy 86.7 ml/min; Phosphorus 2.1 mg/dl (2.5-4.9); Potassium 3.7 mmol/L (3.5-5.1)
--- NOTE | 2024-07-15 07:49 | XRay Report ---
EXAM: XR KUB/Abdomen 1 view CLINICAL HISTORY: Sbo. TECHNIQUE: X-ray image of the abdomen was obtained in AP position. COMPARISON: CR study dated 07/13/2024, CT 07/13/2024 reviewed. FINDINGS: Nasogastric tube is seen reaching stomach. Right upper outer surgical clips likely post-cholecystectomy. Gas Pattern: Interval mildly dilated small bowel at the left of lower abdomen. Rest of gas pattern within the abdomen is normal. No evidence of colonic dilatation or distention. Soft Tissues: Soft tissues of the abdomen appear normal without evidence of masses or calcifications. Liver, spleen, and kidneys are of normal size and position. IMPRESSION: 1. A known case with small bowel obstruction show interval mildly dilated small bowel at left lower abdomen. 2. Nasogastric tube in place. Electronically signed by Merissa Wallis 07-15-2024 07:49 AM
[2024-07-15] MEDS ORDERED: POTASSIUM PHOS 3 MMOL/1 ML INFUSION IV ONE (09:09)
--- NOTE | 2024-07-15 09:44 | Surgery Progress Note ---
Date of Service July 15, 2024 Assessment & Plan (1) SBO (small bowel obstruction): Plan: Recurrent small bowel obstruction, history of multiple abdominal surgeries. Appears to be responding to nonoperative management. Continue NG tube for now, if she begins to pass more flatus and symptoms improve, we will clamp the NG tube Repeat KUB in the morning Surgical follow, call with questions or concerns Admission and Anticipated Discharge Date Admission Date: July 13, 2024 Subjective Admitted with SBO, history of multiple abdominal surgeries including surgery for small bowel obstruction with resection of small bowel. She has passed a small amount of flatus, her abdomen is still sore and a little distended but steadily improving. Physical Exam Constitutional: WD/WN, vitals as above Gastrointestinal (Abdomen): Inspection/Auscultation: + abdomen distended (Mild distention, improved from yesterday) Percussion/Palpation: + abdomen tender (Mild tenderness palpation in left lower quad) and abdomen soft; no guarding and abdomen not rigid Results & Data Vital Signs (Past 12 Hours) Vital Signs Temp Pulse Resp BP Pulse Ox O2 Del Method 07/15/24 07:09 36.7 C 75 18 95/58 L 96 Room Air Laboratory Results Laboratory Results - last 24 hr 07/15/24 05:29 WBC 9.38 RBC 4.16 L Hgb 12.6 Hct 37.2 MCV 89.4 MCH 30.3 MCHC 33.9 RDW Std Deviation 41.3 RDW Coeff of Marcos 12.5 Plt Count 197 MPV 12.3 Sodium 140 Potassium 3.7 Chloride 109 H Carbon Dioxide 25 Anion Gap 6 BUN 9 Creatinine 0.73 Est Cr Clr Drug Dosing 86.7 eGFR 100.13 BUN/Creatinine Ratio 12.3 Glucose 69 L Calcium 7.9 L Phosphorus 2.1 L Magnesium 2.0 Diagnostic Findings KUB X-Ray 07/15/24 06:00 EXAM: XR KUB/Abdomen 1 view CLINICAL HISTORY: Sbo. TECHNIQUE: X-ray image of the abdomen was obtained in AP position. COMPARISON: CR study dated 07/13/2024, CT 07/13/2024 reviewed. FINDINGS: Nasogastric tube is seen reaching stomach. Right upper outer surgical clips likely post-cholecystectomy. Gas Pattern: Interval mildly dilated small bowel at the left of lower abdomen. Rest of gas pattern within the abdomen is normal. No evidence of colonic dilatation or distention. Soft Tissues: Soft tissues of the abdomen appear normal without evidence of masses or calcifications. Liver, spleen, and kidneys are of normal size and position. IMPRESSION: 1. A known case with small bowel obstruction show interval mildly dilated small bowel at left lower abdomen. 2. Nasogastric tube in place. Electronically signed by Merissa Wallis 07-15-2024 07:49 AM PG Care Time/CCT Total # of Minutes Spent Total Time Spent with Patient: Total time spent is greater than 50% in coordination of care (as documented) at patient's floor/unit and/or counseling patient: Coding Level of Care Code 75352 SUB INP/OBS CARE 2/35MIN Diagnoses SBO (small bowel obstruction) K56.609
[2024-07-15] MEDS: D5NSS + 20MEQ KCL 20 MEQ/1,000 ML BAG IV SCH (10:23)
[2024-07-15] MEDS: POTASSIUM PHOSPHATE 21 MMOL in SODIUM CHLORIDE 0.9% 500 ML IV ONE (10:23)
--- NOTE | 2024-07-15 14:39 | Hospitalist Progress Note ---
Date of Service July 15, 2024 Assessment & Plan (1) SBO (small bowel obstruction): Plan: Recurrent small bowel obstruction H/O multiple intra-abdominal surgeries H/O IBS (constipation predominant), transient hematochezia symptoms from 4 days ago as per patient -- Multiple dilated loops of small bowel measuring up to 3.1 cm favoring a small bowel obstruction with no bowel wall thickening or pneumatosis. Decompressed loops of bowel are present in the right lower quadrant, suggesting that is the location of the transition point. No ascites or extraluminal gas. 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 DVT Px: SCDs re: transient hematochezia Code Status Full code Admission and Anticipated Discharge Date Admission Date: July 13, 2024 Subjective Patient is seen and examined at bedside Less abdominal pain today + Flatus, no BM yet Denies any nausea, vomiting, chest pain, dyspnea Family at bedside No other complaints Review of Systems Review of Systems: All systems reviewed & are unremarkable except as noted in Subjective Physical Exam Physical Exam: Physical Exam: Vitals signs as noted above General Appearance:Moderately built and nourished, no apparent distress Head: normocephalic, Atraumatic Eyes: normal inspection, EOMI Neck: supple, Trachea midline Respiratory/Chest: Normal breath sounds, CTA, No accessory muscle use Cardiovascular: S1, S2, No murmur Abdomen/GI:Soft, +bowel sounds, mild tenderness generalized, mild distention Extremities/Musculoskeletal:normal inspection, no edema Neurologic/Psych:AAOX3, grossly no focal neurological deficits Skin: normal color, warm Results & Data Results & Data Vital Signs (Past 12 Hours) Vital Signs Temp Pulse Resp BP Pulse Ox O2 Del Method 07/15/24 07:09 36.7 C 75 18 95/58 L 96 Room Air Laboratory Results Short CBC 07/15/24 Range/Units 05:29 WBC 9.38 (4.8-10.8) K/ul Hgb 12.6 (12.0-16.0) g/dl Hct 37.2 (37.0-47.0) % Plt Count 197 (130-400) K/uL BMP 07/15/24 05:29 Sodium 140 Potassium 3.7 Chloride 109 H Carbon Dioxide 25 BUN 9 Creatinine 0.73 Glucose 69 L Calcium 7.9 L
[2024-07-15] MEDS: KETOROLAC TROMETHAMINE 15 MG/ML VIAL IV ONE (19:59)
[2024-07-16] MEDS: KETOROLAC TROMETHAMINE 15 MG/ML VIAL IV ONE (04:03)
[2024-07-16 06:42] LABS: Hematocrit (blood only) 35.8 % (37.0-47.0); Hemoglobin 12.4 g/dl (12.0-16.0); Mean Corpuscular Hemoglobin 30.6 pg (25.0-34.0); Mean Corpuscular Hgb Conc 34.6 g/dL (32.0-36.0); Mean Corpuscular Volume 88.4 fL (80.0-100.0); Mean Platelet Volume 12.3 fL (9.4-12.4); Platelet Count 213 K/uL (130-400); Red Blood Count 4.05 M/uL (4.20-5.40); White Blood Count 6.15 K/ul (4.8-10.8)
[2024-07-16 07:02] LABS: BUN Creatinine Ratio 8.2 (10-20); Calcium 8.2 mg/dl (8.6-10.3); Creatinine Clr Calc Pharmacy 103.7 ml/min; Phosphorus 2.1 mg/dl (2.5-4.9)
[2024-07-16] MEDS: IBUPROFEN 200 MG TAB PO ONE (09:33)
[2024-07-16] MEDS: SODIUM CHLORIDE 0.9% 1,000 ML IV SCH (09:34)
--- NOTE | 2024-07-16 09:55 | XRay Report ---
KUB CLINICAL HISTORY: f/u SBO COMPARISON STUDY: CT of the abdomen and pelvis July 13, 2024. KUB July 15, 2024. FINDINGS: A mildly dilated loop of small bowel within the left lower quadrant measures 3.3 cm in miguelina danielle. Small bowel dilatation has improved. Pelvic calcifications represent phleboliths. Status post ch olecystectomy. IMPRESSION: Single loop of mildly dilated small bowel. The findings favor an improving partial small bowel obstruction however fluid-filled small bowel loops may be occult by radiography. ACT 112: Negative or not required by law. Electronically signed by: Tommy Rangel M.D. 07/16/2024 9:53 AM
--- NOTE | 2024-07-16 10:42 | Surgery Progress Note ---
Date of Service July 16, 2024 Assessment & Plan (1) SBO (small bowel obstruction): Plan: She continues to improve Her KUB image was personally viewed and interpreted by myself, no signs of obstruction Will advance to full liquids today and likely low fiber tomorrow If tolerates can be discharged home tomorrow Admission and Anticipated Discharge Date Admission Date: July 13, 2024 Subjective Pt seen and examined. Pain much improved. Had a BM yesterday. No N/V with clear liquids. Afebrile. Review of Systems Constitutional: no fever and no chills Respiratory: no cough and no dyspnea Cardiovascular: no chest pain and no dyspnea on exertion Gastrointestinal: no abdominal pain, no nausea and no vomiting Musculoskeletal: no back pain and no neck pain Integumentary: no acne, no changing lesions and no sores Psychiatric: no behavioral changes and no depression Physical Exam Constitutional: WD/WN, vitals as above Eyes: PERRL, conjunctivae normal, anicteric sclerae Respiratory: normal respiratory effort, lungs clear to auscultation Cardiovascular: RRR, no murmur, no edema Gastrointestinal (Abdomen): Inspection/Auscultation: abdomen normal to inspection; abdomen not distended Percussion/Palpation: abdomen soft; abdomen nontender and no guarding Skin: no rashes, warm and dry Psychiatric: A+Ox3, euthymic affect Results & Data Vital Signs (Past 12 Hours) Vital Signs Temp Pulse Resp BP Pulse Ox O2 Del Method 07/16/24 07:33 36.7 C 66 16 116/78 97 Room Air PG Care Time/CCT Total # of Minutes Spent Total Time Spent with Patient: Total time spent is greater than 50% in coordination of care (as documented) at patient's floor/unit and/or counseling patient: Coding Level of Care Code 92930 SUB INP/OBS CARE 06/30MIN Diagnoses SBO (small bowel obstruction) K56.609
[2024-07-16] MEDS: POT PHOSPHATE MONOBASIC W/ SOD TAB PO SCH (13:56)
--- NOTE | 2024-07-16 15:50 | Hospitalist Progress Note ---
Date of Service July 16, 2024 Assessment & Plan (1) SBO (small bowel obstruction): Plan: Recurrent small bowel obstruction H/O multiple intra-abdominal surgeries H/O IBS (constipation predominant), transient hematochezia symptoms from 4 days ago as per patient -- Multiple dilated loops of small bowel measuring up to 3.1 cm favoring a small bowel obstruction with no bowel wall thickening or pneumatosis. Decompressed loops of bowel are present in the right lower quadrant, suggesting that is the location of the transition point. No ascites or extraluminal gas. -- Continue NG tube with low intermittent suction -- Continue IV fluids -- Appreciate surgery input: Conservative management for now --Encouraged to ambulate -- Minimize pain medications as able KUB showed improving partial small bowel obstruction Clear liquid diet today NG tube discontinued GERD Hematochezia likely due to internal hemorrhoids Continue IV Protonix for now Monitor CBC Advised to follow-up with GI as outpatient Intermittent vape use Certified Medical Technician to quit DVT Px: SCDs re: transient hematochezia Code Status Full code Admission and Anticipated Discharge Date Admission Date: July 13, 2024 Subjective Patient is seen and examined at bedside Had a small bowel movement overnight + Flatus Tolerating clear liquid diet today Abdominal pain continues to improve Reports headache which improved Family at bedside Denies any nausea, vomiting, chest pain, dyspnea Review of Systems Review of Systems: All systems reviewed & are unremarkable except as noted in Subjective Physical Exam Physical Exam: Physical Exam: Vitals signs as noted above General Appearance:Moderately built and nourished, no apparent distress Head: normocephalic, Atraumatic Eyes: normal inspection, EOMI Neck: supple, Trachea midline Respiratory/Chest: Normal breath sounds, CTA, No accessory muscle use Cardiovascular: S1, S2, No murmur Abdomen/GI:Soft, +bowel sounds, mild tenderness generalized, mild distention Extremities/Musculoskeletal:normal inspection, no edema Neurologic/Psych:AAOX3, grossly no focal neurological deficits Skin: normal color, warm Results & Data Results & Data Vital Signs (Past 12 Hours) Vital Signs Temp Pulse Resp BP Pulse Ox O2 Del Method 07/16/24 11:59 37 C 67 16 116/78 97 Room Air 07/16/24 07:33 36.7 C 66 16 116/78 97 Room Air Laboratory Results Short CBC 07/16/24 Range/Units 05:55 WBC 6.15 (4.8-10.8) K/ul Hgb 12.4 (12.0-16.0) g/dl Hct 35.8 L (37.0-47.0) % Plt Count 213 (130-400) K/uL [facility] 07/16/24 05:55 Sodium 138 Potassium 4.0 Chloride 111 H Carbon Dioxide 24 BUN 5 L Creatinine 0.61 Glucose 101 H Calcium 8.2 L
[2024-07-17 07:18] VITALS: BP 102/61; PULSE 54; RESP 16; TEMP 97.7; O2SAT 97
[2024-07-17 07:26] LABS: BUN Creatinine Ratio 5.8 (10-20); Calcium 8.5 mg/dl (8.6-10.3); Creatinine Clr Calc Pharmacy 91.7 ml/min; Phosphorus 3.6 mg/dl (2.5-4.9); Potassium 3.7 mmol/L (3.5-5.1)
--- NOTE | 2024-07-17 08:33 | Surgery Progress Note ---
Date of Service July 17, 2024 Assessment & Plan (1) SBO (small bowel obstruction): Plan: Will repeat CT A/P with PO and IV contrast today in hopes this will be therapeutic Give suppository NM today Admission and Anticipated Discharge Date Admission Date: July 13, 2024 Subjective Patient seen and examined. C/o distension and some increased abdominal pain with full liquids. Had small BM yesterday and passing minimal flatus. No N/V. Review of Systems Constitutional: no fever and no chills Respiratory: no cough and no dyspnea Cardiovascular: no chest pain and no dyspnea on exertion Gastrointestinal: + abdominal pain and + bloating; no naus ea and no vomiting Musculoskeletal: no back pain and no neck pain Integumentary: no acne, no changing lesions and no sores Psychiatric: no behavioral changes and no depression Physical Exam Constitutional: WD/WN, vitals as above Eyes: PERRL, conjunctivae normal, anicteric sclerae Respiratory: normal respiratory effort, lungs clear to auscultation Cardiovascular: RRR, no murmur, no edema Gastrointestinal (Abdomen): Inspection/Auscultation: abdomen normal to inspection; abdomen not distended Percussion/Palpation: + abdomen tender (mild left sided) and abdomen soft; no guarding Skin: no rashes, warm and dry Psychiatric: A+Ox3, euthymic affect Results & Data Vital Signs (Past 12 Hours) Vital Signs Temp Pulse Resp BP Pulse Ox O2 Del Method 07/17/24 07:16 36.5 C 54 L 16 102/61 97 Room Air PG Care Time/CCT Total # of Minutes Spent Total Time Spent with Patient: Total time spent is greater than 50% in coordination of care (as documented) at patient's floor/unit and/or counseling patient: Coding Level of Care Code 95511 SUB INP/OBS CARE 06/30MIN Diagnoses SBO (small bowel obstruction) K56.609
[2024-07-17] MEDS: bisacodyL 10 MG SUPP PR STA (09:27)
[2024-07-17] MEDS: OPTIRAY 320 100ml IV ONE (10:52)
--- NOTE | 2024-07-17 11:16 | CT Scan Report ---
CT OF THE ABDOMEN AND PELVIS WITH CONTRAST CLINICAL HISTORY: Small bowel obstruction. COMPARISON STUDY: CT of the abdomen and pelvis 07/13/2024 and KUB July 16, 2024. TECHNIQUE: Following IV administration of 93 mL of Optiray, axial images of the abdomen and pelvis we re obtained from the lung bases to the proximal femurs. Images were reviewed in the axial, sagittal, and coronal planes. IV contrast was administered without complication. Automated exposure control wa s utilized for the study. A dose lowering technique was utilized adhering to the principles of ALARA . Oral contrast was administered. CT DOSE: 731.79 mGy.cm FINDINGS: Bilateral breast implants are incidentally noted. No pneumatosis, free air or portal venous gas is present. There is no biliary ductal dilatation status post cholecystectomy. Spleen, adrenal g lands and pancreas are unremarkable. Multiple subcentimeter bilateral renal lesions are too small to characterize but are likely benign. There is no hydronephrosis. The small bowel obstruction shown on CT of July 13, 2024 has resolved. 3.2 cm hypodense right adnexal lesion is unchanged. Trace fluid within the pelvis is present. Oral contrast reaches the colon. Major vasculature is patent. There has been interval development of mild diffuse colorectal wall thickening with prominent pericolonic and perirectal vessels. IMPRESSION: 1. Interval resolution of the small bowel obstruction shown on CT of July 13, 2024. 2. Interval development of diffuse colorectal wall thickening with prominent pericolonic and perirect al vessels. The findings represent a proctocolitis. Although nonspecific, this is likely infectious. ACT 112: Negative or not required by law. Electronically signed by: Tommy Rangel M.D. 07/17/2024 11:15 AM
--- NOTE | 2024-07-17 14:28 | Hospitalist Progress Note ---
Date of Service July 17, 2024 Assessment & Plan (1) SBO (small bowel obstruction): Plan: Recurrent small bowel obstruction H/O multiple intra-abdominal surgeries H/O IBS (constipation predominant), transient hematochezia symptoms from 4 days ago as per patient -- Multiple dilated loops of small bowel measuring up to 3.1 cm favoring a small bowel obstruction with no bowel wall thickening or pneumatosis. Decompressed loops of bowel are present in the right lower quadrant, suggesting that is the location of the transition point. No ascites or extraluminal gas. --Repeat CT ABD: Interval resolution of the small bowel obstruction shown on CT of July 13, 2024. 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 DVT Px: SCDs re: transient hematochezia Code Status Full code Admission and Anticipated Discharge Date Admission Date: July 13, 2024 Subjective Patient is seen and examined at bedside Patient had a large bowel movement today Repeat CT scan showed resolution of small bowel obstruction Tolerated low fiber Abdominal pain resolved Denies any nausea, vomiting, chest pain, dyspnea Plan to be discharged home today Review of Systems Review of Systems: All systems reviewed & are unremarkable except as noted in Subjective Physical Exam Physical Exam: Physical Exam: Vitals signs as noted above General Appearance:Moderately built and nourished, no apparent distress Head: normocephalic, Atraumatic Eyes: normal inspection, EOMI Neck: supple, Trachea midline Respiratory/Chest: Normal breath sounds, CTA, No accessory muscle use Cardiovascular: S1, S2, No murmur Abdomen/GI:Soft, +bowel sounds, non tender Extremities/Musculoskeletal:normal inspection, no edema Neurologic/Psych:AAOX3, grossly no focal neurological deficits Skin: normal color, warm Results & Data Results & Data Vital Signs (Past 12 Hours) Vital Signs Temp Pulse Resp BP Pulse Ox O2 Del Method 07/17/24 07:16 36.5 C 54 L 16 102/61 97 Room Air Laboratory Results [facility] 07/17/24 06:10 Sodium 139 Potassium 3.7 Chloride 108 H Carbon Dioxide 26 BUN 4 L Creatinine 0.69 Glucose 92 Calcium 8.5 L
--- NOTE | 2024-07-17 14:31 | Discharge Summary ---
Date of Service July 17, 2024 Admission HPI Per Admitting Provider History obtained from patient, family, and records. Medical history significant for recurrent SBO, history of bowel surgery, GERD, IBS (constipation predominant), intermittent vape use. Patient has a history of "necrotic bowel" and intra-abdominal abscesses status post surgery at [facility] in the . 5 bowel obstructions since for surgery. Last surgery 2017 as per patient. Last confinement for bowel obstruction at [facility] 2020. No surgical intervention at that time. 4 days ago, patient had transient hematochezia without abdominal pain complaints. 2 days ago, patient noted achy epigastric discomfort without other symptoms reminiscent of bowel blockage attacks. Worsening GERD symptoms. Last BM was 4 days ago. Denies chest pain, SOB. Patient consulted ER for worsening symptoms. NGT inserted at the ER for bowel obstruction. 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 Admission Exam Per Admitting Provider GENERAL: Slightly uncomfortable, looks younger than stated age, no respiratory distress SKIN: Normal color, warm HEENT: [place] palpebral conjunctivae, no ptosis, dry buccal mucosa, NGT in place NECK : Supple, no tenderness CHEST : CTA, no tenderness HEART : RRR, no obvious murmurs ABDOMEN: Some distention, central abdominal tenderness EXTREMITIES : No LE swelling/tenderness, palpable pulses, no other conspicuous deformities noted NEUROLOGIC : Coherent, no facial asymmetry, no other gross focality Principal Diagnosis Recurrent small bowel obstruction GERD Discharge Data Allergies Allergy/AdvReac Type Severity Reaction Status Date / Time No Known Drug Allergies Allergy Unknown . Verified 08/19/17 07:43 Sulfa (Sulfonamide Allergy Blister Unverified 07/13/24 20:22 Antibiotics) Consultations 07/13/24 19:40 ED Decision to Admit Stat 07/13/24 19:41 Consult General Surgery Stat Procedures Performed Laboratory Results WBC 6.15 K/ul (4.8-10.8) 07/16/24 05:55 RBC 4.05 M/uL (4.20-5.40) L 07/16/24 05:55 Hgb 12.4 g/dl (12.0-16.0) 07/16/24 05:55 Hct 35.8 % (37.0-47.0) L 07/16/24 05:55 MCV 88.4 fL (80.0-100.0) 07/16/24 05:55 MCH 30.6 pg (25.0-34.0) 07/16/24 05:55 MCHC 34.6 g/dL (32.0-36.0) 07/16/24 05:55 RDW Std Deviation 39.0 fL (36.4-46.3) 07/16/24 05:55 RDW Coeff of Marcos 12.0 % (11.5-14.5) 07/16/24 05:55 Plt Count 213 K/uL (130-400) 07/16/24 05:55 MPV 12.3 fL (9.4-12.4) 07/16/24 05:55 Immature Gran % (Auto) 0.3 % 07/14/24 05:35 Neut % (Auto) 76.8 % 07/14/24 05:35 Lymph % (Auto) 13.7 % 07/14/24 05:35 [place] % (Auto) 8.6 % 07/14/24 05:35 Eos % (Auto) 0.4 % 07/14/24 05:35 Baso % (Auto) 0.2 % 07/14/24 05:35 Neut # (Auto) 9.34 K/uL (1.40-6.50) H 07/14/24 05:35 Lymph # (Auto) 1.67 K/uL (1.20-3.40) 07/14/24 05:35 [place] # (Auto) 1.05 K/uL (0.11-0.59) H 07/14/24 05:35 Eos # (Auto) 0.05 K/uL (0.00-0.50) 07/14/24 05:35 Baso # (Auto) 0.03 K/uL (0.00-0.20) 07/14/24 05:35 Immature Gran # (Auto) 0.04 K/uL (0.01-0.20) 07/14/24 05:35 Sodium 139 mmol/L (136-145) 07/17/24 06:10 Potassium 3.7 mmol/L (3.5-5.1) 07/17/24 06:10 Chloride 108 mmol/L (98-107) H 07/17/24 06:10 Carbon Dioxide 26 mmol/L (21-32) 07/17/24 06:10 Anion Gap 5 (3-11) 07/17/24 06:10 BUN 4 mg/dl (6-23) L 07/17/24 06:10 Creatinine 0.69 mg/dl (0.6-1.2) 07/17/24 06:10 Est Cr Clr Drug Dosing 91.7 ml/min 07/17/24 06:10 eGFR 105.66 07/17/24 06:10 BUN/Creatinine Ratio 5.8 (10-20) L 07/17/24 06:10 Glucose 92 mg/dl (70-99(Fasting)) 07/17/24 06:10 Calcium 8.5 mg/dl (8.6-10.3) L 07/17/24 06:10 Phosphorus 3.6 mg/dl (2.5-4.9) D 07/17/24 06:10 Magnesium 2.0 mg/dl (1.7-2.4) 07/15/24 05:29 Total Bilirubin 0.4 mg/dl (0.2-1.0) 07/13/24 17:19 AST 15 U/L (13-39) 07/13/24 17:19 ALT 13 U/L (7-52) 07/13/24 17:19 Alkaline Phosphatase 63 U/L (34-104) 07/13/24 17:19 Total Protein 8.0 gm/dl (6.0-8.3) 07/13/24 17:19 Albumin 4.8 gm/dl (3.4-5.0) 07/13/24 17:19 Globulin 3.2 gm/dl (2.5-4.0) 07/13/24 17:19 Albumin/Globulin Ratio 1.5 (0.9-2) 07/13/24 17:19 Lipase 21 U/L (11-82) 07/13/24 17:19 HCG, Qual Negative (Negative) 07/13/24 17:19 Urine Color Yellow 07/14/24 00:26 Urine Appearance Clear (Clear) 07/14/24 00:26 Urine pH 5.0 (4.5-7.5) 07/14/24 00:26 Ur Specific [place] > 1.045 (1.000-1.030) H 07/14/24 00:26 Urine Protein Negative (Negative) 07/14/24 00:26 Urine Glucose (UA) Negative (Negative) 07/14/24 00:26 Urine Ketones 1+ (Negative) H 07/14/24 00:26 Urine Blood Negative (Negative) 07/14/24 00:26 Urine Nitrite Negative (Negative) 07/14/24 00:26 Urine Bilirubin Negative (Negative) 07/14/24 00:26 Urine Urobilinogen Negative (Negative) 07/14/24 00:26 Ur Leukocyte Esterase Negative (Negative) 07/14/24 00:26 Impressions KUB X-Ray 07/16/24 07:00 KUB CLINICAL HISTORY: f/u SBO COMPARISON STUDY: CT of the abdomen and pelvis July 13, 2024. KUB July 15, 2024. FINDINGS: A mildly dilated loop of small bowel within the left lower quadrant measures 3.3 cm in caliber. Small bowel dilatation has improved. Pelvic calcifications represent phleboliths. Status post cholecystectomy. IMPRESSION: Single loop of mildly dilated small bowel. The findings favor an improving partial small bowel obstruction however fluid-filled small bowel loops may be occult by radiography. ACT 112: Negative or not required by law. Electronically signed by: Tommy Rangel M.D. 07/16/2024 9:53 AM Abdomen/Pelvis CT 07/17/24 08:27 CT OF THE ABDOMEN AND PELVIS WITH CONTRAST CLINICAL HISTORY: Small bowel obstruction. COMPARISON STUDY: CT of the abdomen and pelvis 07/13/2024 and KUB July 16, 2024. TECHNIQUE: Following IV administration of 93 mL of Optiray, axial images of the abdomen and pelvis were obtained from the lung bases to the proximal femurs. Im ages were reviewed in the axial, sagittal, and coronal planes. IV contrast was administered without complication. Automated exposure control was utilized for the study. A dose lowering technique was utilized adhering to the principles of ALARA. Oral contrast was administered. CT DOSE: 731.79 mGy.cm FINDINGS: Bilateral breast implants are incidentally noted. No pneumatosis, free air or portal venous gas is present. There is no biliary ductal dilatation status post cholecystectomy. Spleen, adrenal glands and pancreas are unremarkable. Multiple subcentimeter bilateral renal lesions are too small to characterize but are likely benign. There is no hydronephrosis. The small bowel obstruction shown on CT of July 13, 2024 has resolved. 3.2 cm hypodense right adnexal lesion is unchanged. Trace fluid within the pelvis is present. Oral contrast reaches the colon. Major vasculature is patent. There has been interval development of mild diffuse colorectal wall thickening with prominent pericolonic and perirectal vessels. IMPRESSION: 1. Interval resolution of the small bowel obstruction shown on CT of July 13, 2024. 2. Interval development of diffuse colorectal wall thickening with prominent pericolonic and perirectal vessels. The findings represent a proctocolitis. Although nonspecific, this is likely infectious. ACT 112: Negative or not required by law. Electronically signed by: Tommy Rangel M.D. 07/17/2024 11:15 AM Ordered Studies 07/13/24 17:44 CT abd pelvis IV con only Stat 07/17/24 08:27 CT Abd and Pelvis [CT abd pelvis oral and IV con] Routine Hospital Course (1) SBO (small bowel obstruction): Recurrent small bowel obstruction H/O multiple intra-abdominal surgeries H/O IBS (constipation predominant), transient hematochezia symptoms from 4 days ago as per patient -- Multiple dilated loops of small bowel measuring up to 3.1 cm favoring a small bowel obstruction with no bowel wall thickening or pneumatosis. Decompressed loops of bowel are present in the right lower quadrant, suggesting that is the location of the transition point. No ascites or extraluminal gas. --Repeat CT ABD: Interval resolution of the small bowel obstruction shown on CT of July 13, 2024. 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 DVT Px: SCDs re: transient hematochezia Code Status Full code Total Time Total Time Spent Total Time Spent (In Minutes): 54 minutes Discharge Plan Discharge Items Patient Disposition: Home - Self-Care Reason For Visit: SBO Discharge Diagnosis: Recurrent small bowel obstruction GERD Activity: Per Instructions section Exercise/Sports: Gradually increase as tolerated Non-emergency contact: Primary Care Provider, Surgeon and Data Entry Machine Operator Call non-emergency contact if: you have any medication questions, your symptoms worsen, your pain is concerning for you and you have a fever Follow-up/Referrals: Rashida Diallo [Primary Care Provider] - Diet: Low Fiber Addtl Attending Provider Instructions: Follow-up with your primary care physician in 1 week Follow-up with your surgeon as advised Follow-up with your platform engineer for possible endoscopy as recommended -- Continue low fiber diet for 6 to 8 weeks. Further recommendations as per primary care physician -- Increase oral fluid intake to minimize dehydration Seek immediate medical attention if your symptoms reoccur or worsen Please take all medications as instructed on discharge list below. Please call if you have any questions or problems. You can reach a [facility] hospitalist on duty at [facility] 24 hours a day by calling [phone] Pending Studies at Discharge: No Stand-Alone Forms: My [facility], Smoking Cessation Medications and DC Order Prescriptions: Continued dicyclomine 20 mg tablet 20 mg PO TID hyoscyamine sulfate 0.125 mg tablet, sublingual 0.125 mg PO DAILY CombiPatch 0.05-0.14 mg/24 hr patch semiweekly 1 patch transdermal DIRECTED Linzess 72 mcg capsule 72 mcg PO DAILY Protonix 40 mg PO DAILY Discharge Orders: Discharge Order (Routine); Ordered 07/17/24 Ordered By: Lester Spangler Admission Data Admit Date/Time: 07/13/24 21:37 Attending Provider: Lester Spangler Admit Provider: Zaid Pagan Primary Care Provider: Rashida Diallo Other Providers: Zaid Pagan; Telly [place]
[2024-07-17] MEDS ORDERED: SODIUM CHLORIDE 0.9% 500 ML IV SCH (15:00)
--- NOTE | 2024-07-17 18:41 | Electrocardiogram Report ---
Test Reason : Blood Pressure : */* mmHG Vent. Rate : 61 BPM Atrial Rate : 61 BPM P-R Int : 176 ms QRS Dur : 78 ms QT Int : 426 ms P-R-T Axes : 75 72 75 degrees QTcB Int : 428 ms Normal sinus rhythm Normal ECG When compared with ECG of 09-Aug-2017 15:36, No significant change Confirmed by Juan Carlos Espinoza ([id number]) on 07/17/2024 6:41:24 PM Referred By: REFERRED SELF Confirmed By: Juan Carlos Espinoza
== END 2024-07-17 14:57 | disposition home or self-care (01) | DRG 389 ==
LOC: ED 16:44 → 3E 21:37